=== PATIENT | female | born 1945 | race Caucasian/White ===

== ENCOUNTER → 2017-02-25 | Outpatient (CLI) | payer BC ==
[~2017-02-25] MED LIST: LPTUNK; LRT5 PO; TIOTCAP INH
[2017-02-25 10:49] LABS: BASO % 0.9 %; BASO ABS # 0.06 K/uL (0-0.2); COMPLETE YES; HEMATOCRIT 43.4 % (37-47); IG% 0.1 %; LYMPH % 38.9 %; LYMPH ABS # 2.66 K/uL (1.2-3.4); MEAN CELL VOLUME 89.3 fL (80-100); MEAN CORPUSCULAR HEMOGLOBIN 29.8 pg (25-34); MEAN CORPUSCULAR HGB CONC 33.4 g/dl (32-36); MEAN PLATELET VOLUME 10.5 fL (7.4-10.4); MONO % 9.5 %; NEUT % 48.6 %; PLATELET COUNT 260 K/uL (130-400); RED BLOOD COUNT 4.86 M/uL (4.2-5.4); WHITE BLOOD COUNT 6.83 K/uL (4.8-10.8)
[2017-02-25 11:21] LABS: ALT/SGPT 23 U/L (12-78); AST/SGOT 14 U/L (15-37); BLOOD UREA NITROGEN 15 mg/dl (7-18); BUN/CREATININE RATIO 17.8 (10-20); CALCIUM 8.9 mg/dl (8.5-10.1); CARBON DIOXIDE 30 mmol/L (21-32); CHLORIDE 110 mmol/L (98-107); CREATININE 0.83 mg/dl (0.60-1.20); GLUCOSE 99 mg/dl (70-99); POTASSIUM 4.7 mmol/L (3.5-5.1); SODIUM 144 mmol/L (136-145)
[2017-02-25 11:33] LABS: ALKALINE PHOSPHATASE 66 U/L (45-117); CHOLESTEROL 264 mg/dl (0-200); CHOLESTEROL/HDL RATIO 5.2; HDL CHOLESTEROL 51 mg/dl; LDL CHOLESTEROL CALCULATED 172 mg/dl; TRIGLYCERIDES 204 mg/dl (0-150); VERY LOW DENSITY LIPOPROT CALC 41 mg/dl
== END | disposition home or self-care (01) ==
LOC: C.LABBC 08:41
PROVIDERS: ATTEND Internal Medicine Pulmonary Disease
DX: J44.9 Chronic obstructive pulmonary disease, unspecified (principal); M81.0 Age-related osteoporosis without current pathological fracture; E78.5 Hyperlipidemia, unspecified

== ENCOUNTER → 2017-05-08 | Outpatient (CLI) | payer BC ==
--- NOTE | 2017-05-09 07:41 | MAMMOGRAPHY REPORT ---
BILATERAL DIGITAL SCREENING MAMMOGRAM WITH CAD: 05/08/2017 CLINICAL HISTORY: Routine screening. Patient has no complaints. TECHNIQUE: Bilateral CC and MLO views were obtained. Current study was also evaluated with a Compute r Aided Detection (CAD) system. COMPARISON: Comparison is made to exams dated: 05/05/2016 mammogram, 11/09/2015 mammogram, 05/20/2015 m ammogram, 05/11/2015 mammogram, 05/04/2015 mammogram, and 05/02/2014 mammogram - [facility] enter. BREAST COMPOSITION: There are scattered areas of fibroglandular density in both breasts. FINDINGS: There are diffuse bilateral benign rim calcifications. 2 stable metallic biopsy marker cli ps in the right breast. No new suspicious mass, architectural distortion or cluster of microcalcific ations is seen. IMPRESSION: ACR BI-RADS CATEGORY 1: NEGATIVE There is no mammographic evidence of malignancy. A 1 year screening mammogram is recommended. The pa tient will receive written notification of the results. Approximately 10% of breast cancers are not detected with mammography. A negative mammographic report should not delay biopsy if a clinically suggestive mass is present. Aleta Galarza M.D. ay/:05/08/2017 16:03:36 Finance Broker: Lana DURAN(R)(Renetta)(BD), [facility] letter sent: Normal 1/2 BI-RADS Code: ACR BI-RADS Category 1: Negative
== END | disposition home or self-care (01) ==
LOC: C.MAMM 09:29
PROVIDERS: ATTEND Obstetrics & Gynecology
DX: Z12.31 Encounter for screening mammogram for malignant neoplasm of breast (principal)

== ENCOUNTER → 2018-03-01 | Outpatient (CLI) | payer BC ==
[2018-03-01 13:05] LABS: BASO % 0.8 %; BASO ABS # 0.05 K/uL (0-0.2); EOS % 2.1 %; EOS ABS # 0.14 K/uL (0-0.5); HEMATOCRIT 40.5 % (37-47); HEMOGLOBIN 14.1 g/dL (12.0-16.0); IG# 0.02 K/uL (0.00-0.02); LYMPH % 38.6 %; LYMPH ABS # 2.55 K/uL (1.2-3.4); MEAN CELL VOLUME 86.4 fL (80-100); MEAN CORPUSCULAR HEMOGLOBIN 30.1 pg (25-34); MEAN CORPUSCULAR HGB CONC 34.8 g/dl (32-36); MEAN PLATELET VOLUME 9.7 fL (7.4-10.4); MONO ABS # 0.46 K/uL (0.11-0.59); NEUT % 51.2 %; NEUT ABS # 3.39 K/uL (1.4-6.5); PLATELET COUNT 246 K/uL (130-400); RED CELL DISTRIBUTION WIDTH CV 13.6 % (11.5-14.5); WHITE BLOOD COUNT 6.61 K/uL (4.8-10.8)
[2018-03-01 13:46] LABS: ALBUMIN 3.5 gm/dl (3.4-5.0); ALT/SGPT 39 U/L (12-78); AST/SGOT 26 U/L (15-37); BLOOD UREA NITROGEN 9 mg/dl (7-18); CALCIUM 8.6 mg/dl (8.5-10.1); CARBON DIOXIDE 26 mmol/L (21-32); CHOLESTEROL 146 mg/dl (0-200); CREATININE 0.85 mg/dl (0.60-1.20); GLUCOSE 93 mg/dl (70-99); SODIUM 142 mmol/L (136-145)
[2018-03-01 13:57] LABS: ALKALINE PHOSPHATASE 73 U/L (45-117); LDL CHOLESTEROL CALCULATED 62 mg/dl; TOTAL PROTEIN 7.1 gm/dl (6.4-8.2)
== END | disposition home or self-care (01) ==
LOC: C.LABBC 08:55
PROVIDERS: ATTEND Internal Medicine Pulmonary Disease
DX: Z00.00 Encounter for general adult medical examination without abnormal findings (principal); J44.9 Chronic obstructive pulmonary disease, unspecified; E78.5 Hyperlipidemia, unspecified; F41.9 Anxiety disorder, unspecified

== ENCOUNTER → 2018-05-09 | Outpatient (CLI) | payer BC ==
--- NOTE | 2018-05-10 08:11 | MAMMOGRAPHY REPORT ---
BILATERAL DIGITAL SCREENING MAMMOGRAM TOMOSYNTHESIS WITH CAD: 05/09/2018 CLINICAL HISTORY: Routine screening. Patient has no complaints. TECHNIQUE: The study was acquired using full field digital technology and interpreted from soft copy. Breast tomosynthesis in addition to standard 2D mammography was performed. Current study was also ev aluated with a Computer Aided Detection (CAD) system. COMPARISON: Comparison is made to exams dated: 05/08/2017 mammogram, 05/05/2016 mammogram, 11/09/2015 m ammogram, 05/20/2015 mammogram, 05/11/2015 mammogram, and 05/04/2015 mammogram - [facility] enter. BREAST COMPOSITION: There are scattered areas of fibroglandular density in both breasts. FINDINGS: No suspicious masses, calcifications, or areas of architectural distortion are noted in either breast . There has been no significant interval change compared to prior exams. Scattered bilateral benign-a ppearing calcifications are not significantly changed. A biopsy clip is again noted within the right medial breast. Bilateral nodularity appears stable compared to prior exams. IMPRESSION: There is no mammographic evidence of malignancy. A 1 year screening mammogram is recommended.( 019) The patient will receive written notification of the results. Approximately 10% of breast cancers are not detected with mammography. A negative mammographic report should not delay biopsy if a clinically suggestive mass is present. Haritha Mars M.D. /:05/09/2018 14:59:55 Fixing Machine Operator: Juliana Lindquist, [facility] letter sent: Normal 1/2 BI-RADS Code: ACR BI-RADS Category 2: Benign
== END | disposition home or self-care (01) ==
LOC: C.MAMM 09:17
PROVIDERS: ATTEND Internal Medicine Pulmonary Disease
DX: Z12.31 Encounter for screening mammogram for malignant neoplasm of breast (principal)

== ENCOUNTER → 2018-06-08 | Outpatient (CLI) | payer BC ==
--- NOTE | 2018-06-08 10:26 | DIAGNOSTIC IMAGING REPORT ---
R FOOT MIN 3 VIEWS ROUTINE CLINICAL HISTORY: M79.671 Foot pain, rightright COMPARISON: None. DISCUSSION: The bones and joint spaces appear intact. There is no evidence of fracture, dislocation or bony disease. There is no evidence for soft tissue swelling. IMPRESSION: Negative study. Small heel spur. The above report was generated using voice recognition software. It may contain grammatical, syntax or spelling errors. Electronically signed by: Luis Carlos Buck M.D. 06/08/2018 10:24 AM Dictated Date/Time: 06/08/2018 10:23 AM
== END | disposition home or self-care (01) ==
LOC: C.RAD1850 10:11
PROVIDERS: ATTEND Nurse Practitioner
DX: M79.671 Pain in right foot (principal); M77.31 Calcaneal spur, right foot

== ENCOUNTER 2024-01-15 06:08 | Inpatient (IN) ==
--- OUTSIDE RECORDS SUMMARY | 2024-01-15 06:12 | External Medical Summary | Continuity of Care Document ---
Author Name Unknown Organization [address] Address [address] [place], [place] [id number] Care Team Providers Care Electrical Tests Supervisor Name Role Phone Marva Liu Primary [facility] [place] [phone] Encounter [facility] [id number] Date(s): 01/12/24 - 01/12/[address] [facility] [address], [address] [place] [address] [phone] Encounter Diagnosis Left sided sciatica(Discharge Diagnosis) - 01/12/24 Discharge Disposition: Home or Self Care Attending Physician: Nik Sow DO, Mariana Annette Referring Physician: Nik Sow DO, Mariana Annette Allergies, Adverse Reactions, Alerts Substance Reaction Severity Status sulfa drugs unsure Active Assessment and Plan Extracted from: Title:Office Visit Note Author:Nik Sow DO, Mariana Annette Date:01/12/24 1.Left sided sciatica Acute discussed supportive care, heat/ice, tylenol and ibuprofen up to 4x daily. Patient given stretching and strengthening exercises. if not improving in 2-3 weeks, could consider formal PT, patient will reach out if not improving or if worsening Medications atorvastatin 40 mg oral tablet Start: 12/15/23 10:19:00 EST, 1 tab, PO, Daily, Disp# 90 tab, Refills: 3, Pharmacy: [id number] Start Date: 12/15/23 Status: Ordered LORazepam 0.5 mg oral tablet Start: 12/15/23 10:19:00 EST, 1 tab, PO, Daily, Disp# 15 tab, Refills: 0, PRN: as needed for anxiety, Pharmacy: [id number] Start Date: 12/15/23 Status: Ordered Spiriva 18 mcg inhalation capsule Start: 12/15/23 10:18:00 EST, 1 each, inhaled, Daily, Disp# 90 cap, Refills: 3, Pharmacy: [facility] Start Date: 12/15/23 Status: Ordered Mental Status 01/12/24 Barriers to Learning one year None evide nt Mandatory Health Literacy Documentation Yes Health Literacy Communication Barriers N ever Primary Language Estonian Problem List Condition Confirmation Course Effective Dates Status H ealth Status Informant Anxiety Confirmed Active COPD Confirmed Active Hyperlipidemia Confirmed Active Non-melanoma skin cancer Confirmed Active Osteoporosis Confirmed Active Weight disorder Confirmed Active Diagnosis Diagnosis Type Effective Dates Health Status Cl inical Service Informant Left sided sciatica Discharge Diagnosis 01/12/24 Procedures Procedure Date Related Diagnosis Body Site Status Colonoscopy 2015 Completed Shave biopsy of skin Comp leted surgery on hand Completed Vital Signs Most recent to oldest [Reference Range]: 1 Patient Weight 81.2 kg (01/12/24 10:26 AM) Heart Rate 64 bpm (01/12/24 10:26 AM) Blood Pressure 128/74mmHg (01/12/24 10:26 AM) Cuff Pulse Pressure 54 mmHg (01/12/24 10:26 AM) Social History Social History Type Response Tobacco Former smoker, Cigar ettes, 1 per day. 30 year(s). Smoking Status Former Smoker, quit > 1 yr Sex Female [facility] Outpt Note * Nik Sow DO, Mariana Annette: PERFORM Event Display: [facility] Outpt Note Authored Date: Chief Complaint c/o of left sided leg pain. States she is starting to have pain on her right side today Some times its a "really strong pain" some times it is an ache. History of Present Illness Endorses left leg pain started in left buttock radiates down her leg andstops atankle pain is achy, sometimes worsens, sharp pain in her buttock with pressure no rashes started Monday, came on gradually no injury or changes in routine taking ibuprofen twice per day which helps, also took tylenol arthritis but that did not help walking worsens the pain this morning noted that her right leg/knee were achy as well Physical Exam Vitals & Measurements HR:64(Monitored) BP:128/74 SpO2:95% WT:81.2kg WT:81.200kg(Dosing) General: Well-developed, well-nourished and in no acute distress. Skin: No lesions or rash noted throughout the spine or legs Back: On palpation of the thoracic and lumbar spinous processes, there is no tenderness. There is no tenderness on palpation of the paraspinous muscles bilaterally. There is no limitation to flexion or extension of the spinal column, no limitation to rotation, no limitation to lateral bending. Straight leg raise is negative bilaterally Negative Hip scour, LOIDA test, log roll. No TTP over knee joint, no edema or erythema, no ligamentous laxity No TTP over ankle joint, no edema Neurologic: Patellar tendon reflexes are 2+ bilaterally. Achilles tendon reflexes are 2+ bilaterally. Strength is 5/5 with flexion at the hip, flexion at the knee, extension at the knee, dorsiflexion at the ankle and plantarflexion at the ankle. Assessment/Plan 1.Left sided sciatica Acute discussed supportive care, heat/ice, tylenol and ibuprofen up to 4x daily. Patient given stretching and strengthening exercises. if not improving in 2-3 weeks, could consider formal PT, patient will reach out if not improving orif worsening Attestation Time spent: Pre-visit planning: _ [id number] visit: _20 Post-visit (orders/documentation/coordination of care):5 Total visit time: _25 Problem List/Past Medical History Ongoing Anxiety COPD Hyperlipidemia Non-melanoma skin cancer Osteoporosis Weight disorder Historical Skin cancer Procedure/Surgical History Colonoscopy| Service Date: biopsy of skinsurgery on hand Medications atorvastatin(atorvastatin 40 mg oral tablet), 40 mg= 1 tab, PO, Daily, 3 refills LORazepam(LORazepam 0.5 mg oral tablet), 0.5 mg= 1 tab, PO, Daily, PRN tiotropium(Spiriva 18 mcg inhalation capsule), 18 mcg= 1 each, inhaled, Daily, 3 refills Allergies sulfa drugsunsure Social History Smoking Status Former Smoker, quit > 1 yr Alcohol - Denies Alcohol Use Employment/School Status:Retired Exercise - Comments: walks outside when weather is nice, walks in grocery store Home/Environment Lives with:Children, Spouse Living situation:Home/Independent Substance Abuse - Denies Substance Abuse Tobacco Use:Former smoker Type:Cigarettes Tobacco use per day:1 Number of years:30 Family History Heart attack: Father.Negative: Mother. Malignant tumor of lung: Brother. Skin cancer: Sister. Stroke: Sister. Health Status Family Member(s) Recommendations Health Maintenance Pending(in the next year) OverDue Adult Influenza Vaccine due04/21/23and every 1year Due Adult COVID-19 Vaccination due01/12/24Unknown Frequency Adult Social Determinants of Health Screening due01/12/24Unknown Frequency Adult Tdap/Td Vaccine due01/12/24Unknown Frequency Body Mass Index due01/12/24Unknown Frequency Medicare Annual Wellness Visit due01/12/24and every 1year Pneumococcal Vaccine Older Adults due01/12/24One-time only Shingles Vaccine due01/12/24One-time only Satisfied(in the past 1 year) Satisfied Breast Cancer Screening on05/25/23.Satisfied by SARAH Suazo Gillian Hepatitis C Screening on12/26/23.Satisfied by Contributor_system, [id number] Lipid Screening on12/26/23.Satisfied by Contributor_system, [id number] Osteoporosis Screening on04/28/23.Satisfied by SARAH Suazo Gillian Electronic Signature on File Electronically Reviewed/Signed by: Marva Sow DO Author Signature Dt/Tm:01/12/2024 11:01 AM Department of Family Medicine [facility] Patient Care team information Care Team Personnel Name: Nik Sow DO, Mariana Annette Position: Physician - Family Med Member Role: Primary Care Provider Address: Address: [address] [place] [address], [place] [address] [place] Care Team Related Persons Name: MANOLO CABALLERO Address: home [address] [place] [address] SHANNAN DAVE [phone]
--- NOTE | 2024-01-15 06:45 | XRay Report ---
XR hip LT 2V w pelvis CLINICAL HISTORY: Left hip pain. COMPARISON: CT of the abdomen and pelvis March 23, 2022. FINDINGS: Sacroiliac joints and symphysis pubis are intact. There is no fracture or osseous lesion w ithin the pelvis or hips. There is mild joint space narrowing and osteophytosis of the hips. No evide nce for avascular necrosis of the femoral heads. IMPRESSION: 1. No fractures within the pelvis or hips. 2. Mild bilateral hip osteoarthritis. ACT 112: Negative or not required by law. Electronically signed by: Nils Dominique M.D. 01/15/2024 6:44 AM
[2024-01-15] MEDS: HYDROmorphone INJ 0.5 MG/0.5 ML SYR IV STA ×2 (07:11→08:15)
--- NOTE | 2024-01-15 07:23 | Emergency Department Note ---
Impression & Plan Sciatica ED Provider Note NAME: OLLIE CABALLERO AGE: 78 SEX: F : 1945 ARRIVES VIA: Walk-In INFORMANT: Patient, ED PROVIDER(S): Rose Mohr MD CHIEF COMPLAINT: Continued back pain HPI: This is an 78-year-old female history of COPD, GERD presenting for back pain. Patient states that she seen here about 2 days ago and diagnosed with sciatica. She states that the pain goes from her lower back into her left butt cheek and radiates into the anterior/lateral aspect of her left lower extremity. She does feel somewhat numb at times. She does feels mildly swollen compared to the right. She does pain is still excruciating in her back and not improved with the steroid pack she was given. She does she has been having difficulty walking around due to this pain. No saddle anesthesia, urinary or bowel incontinence. No nausea vomiting or fevers. No chest pain. ROS: See above HPI for pertinent positives & negatives. A total of 10 systems reviewed and were otherwise negative. PAST MEDICAL HISTORY: See Below PAST SURGICAL HISTORY: See Below FAMILY HISTORY: See Below SOCIAL HISTORY: See Below HOME MEDICATIONS: See Below ALLERGIES: See Below VITALS: See Below PHYSICAL EXAMINATION: General: resting comfortably in no acute distress Head: Normocephalic and atraumatic Eyes: Normal inspection, extraocular muscles intact Ear, nose, throat: Normal external exam Neck: Normal range of motion Respiratory: lungs clear to auscultation bilaterally Cardiovascular: Regular rate/rhythm, no murmur GI: soft, nontender, no guarding or rebound Extremities: nontender, moves all extremities Neuro: The patient awake and alert, appropriately conversive, no focal deficits, symmetric faces Skin: Warm, dry, and intact MEDICAL DECISION MAKING: This is an 78-year-old female presenting for back pain. Patient symptoms appear consistent with sciatica at this time clinically she has 2+ pulses making arterial occlusion unlikely. Otherwise patient notes reported history of swelling, difficulty appreciate but with her description of this, will do DVT study. Will do pain control here with Toradol and Dilaudid. Clinically with patient's symptoms, consider sciatica however low concern for dissection or arterial occlusion. -DVT study is negative for acute blood clot -Patient notes somewhat improvement after Dilaudid. Due to inability to control patient's pain, will admit for further management of pain. Differential diagnosis: See above ER treatment provided: See below Diagnostics interpreted by me: ECG: None Cardiac Monitoring: An order was placed for continuous cardiac monitoring. The monitor shows a rate of 60 with sinus rhythm. Laboratory studies: As stated above and show below. Imaging studies: See below. Past Med/Surg History Medical History Uterine fibroid Osteoporosis Anxiety Dyslipidemia History of abnormal mammogram Hx of acute dermatitis Hx of basal cell carcinoma Disc degeneration, lumbosacral Surgical History H/O breast biopsy Status post Mohs micrographic surgery for basal cell carcinoma (BCC) S/P dilatation and curettage S/P colonoscopy (~2007) History of cryosurgery S/P breast biopsy Hx of bilateral cataract extraction (~2017) Family History Aunt Breast cancer Father Coronary heart disease Pulmonary embolism Mother Diabetes Sister Dementia Mini stroke History of blood clots Sister History of blood clots Mini stroke Daughter Deep vein thrombosis Brother History of blood clots Other No pertinent family history Denies family history of Ovarian cancer Prostate cancer Myocardial infarction Colorectal cancer Social History Smoking Status: Former smoker Tobacco Type: Cigarettes Age Started Using Tobacco: 17; Age Quit Using Tobacco: 58; packs per day: 0.75; Second Hand Exposure: No; Do You Dip or Chew Tobacco: No; Hx Alcohol Use: No Hx Substance Use: No Preferred Language: Dominican Communication Ability: Effective Visual Impairment: No Limitations Hearing Ability: Normal Plate Filler Required: No Beliefs That Will Affect Care: None marital status: Current Living Situation: Spouse current occupational status: retired 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 Other Information That Helps Us Care for You: No Feels Safe at Home: Yes Safety Concerns: Feels Safe At This Time Childhood Exposure to Second-Hand Smoke: Yes Diet: regular Dental Care, Regularly: No Physical Activity Frequency: Does not Exercise Seatbelt Use: always Sunscreen Use: Yes (sometimes ) Assistive Devices: Glasses Allergies Allergies Allergy/AdvReac Type Severity Reaction Status Date / Time Sulfa (Sulfonamide Allergy Verified 11/06/23 14:47 Antibiotics) Home Meds Home Medications Medication Instructions Recorded Confirmed denosumab 60 mg/mL subcutaneous 0 mg subcut ONCE 01/15/24 01/15/24 syringe (Prolia) lorazepam 0.5 mg tablet 0.5 mg PO DAILY PRN anxiety 01/15/24 01/15/24 Previous Rx's Medication Instructions Recorded albuterol sulfate 90 mcg/actuation 2 puff inhalation Q4H PRN 10/05/22 aerosol inhaler (Ventolin HFA) Shortness Of Breath #1 inhaler tiotropium bromide 18 mcg capsule 1 cap inhalation DAILY #90 12/05/22 with inhalation device inhalations atorvastatin 40 mg tablet 40 mg PO DAILY #90 tabs 10/05/23 methylprednisolone 4 mg tablets in 4 mg PO DIRECTED #21 ea 01/13/24 a dose pack (Medrol (Praful)) Results & Data (ED) Vital Signs Vital Signs - 24 hr 01/15/24 06:11 01/15/24 07:13 01/15/24 07:30 Temperature 36.7 C Temperature Source Temporal Artery Scan Pulse Rate 73 61 60 Pulse Rhythm Regular Pulse Strength Normal Respiratory Rate 18 14 13 Respiratory Effort / Characteristics Non-Labored Respiratory Depth Normal Respiratory Pattern Regular Blood Pressure 127/71 165/73 H 146/74 H Blood Pressure Mean 89 103 101 Pulse Oximetry 95 96 95 Oxygen Delivery Method Room Air Room Air Room Air Sepsis Recent Fever Within 48 Hours No Sepsis New/Unexplained Change in Mental Status No Sepsis Action Taken by Nursing No Action Required 01/15/24 08:23 01/15/24 08:30 01/15/24 09:00 Temperature Temperature Source Pulse Rate 63 63 60 Pulse Rhythm Pulse Strength Respiratory Rate 17 17 Respiratory Effort / Characteristics Respiratory Depth Respiratory Pattern Blood Pressure 156/85 H 141/72 H Blood Pressure Mean 108 95 Pulse Oximetry 94 93 Oxygen Delivery Method Room Air Room Air Sepsis Recent Fever Within 48 Hours Sepsis New/Unexplained Change in Mental Status Sepsis Action Taken by Nursing 01/15/24 09:30 Temperature Temperature Source Pulse Rate 60 Pulse Rhythm Pulse Strength Respiratory Rate 18 Respiratory Effort / Characteristics Respiratory Depth Respiratory Pattern Blood Pressure 147/74 H Blood Pressure Mean 98 Pulse Oximetry 94 Oxygen Delivery Method Room Air Sepsis Recent Fever Within 48 Hours Sepsis New/Unexplained Change in Mental Status Sepsis Action Taken by Nursing Laboratory Data 01/15/24 10:24 01/15/24 10:24 Administered Medications Acetaminophen (Acetaminophen 325 Mg Tab) 650 mg PO Q4H ALFRED Stop: 02/14/24 09:44 Last Admin: 01/15/24 13:27 Dose: 650 mg Documented By: Admin: 01/15/24 10:36 Dose: 650 mg Documented By: ARLEY Atorvastatin Calcium (Atorvastatin 40 Mg Tab) 40 mg PO DAILY ALFRED Stop: 02/14/24 10:39 Last Admin: 01/15/24 12:07 Dose: 40 mg Documented By: THIEN Umeclidinium [place] (Umeclidinium [place] 62.5mcg/Blister 7 Puffs/Inhaler) 1 puffs INH DAILY ALFRED Stop: 02/14/24 10:59 Last Admin: 01/15/24 12:07 Dose: 1 puffs Documented By: THIEN Discontinued Medications Enoxaparin Sodium (Enoxaparin Inj 40 Mg/0.4 Ml Syr) 40 mg SQ Q24H ALFRED Stop: 01/15/24 10:01 Last Admin: 01/15/24 10:36 Dose: 40 mg Documented By: ARLEY Hydromorphone HCl (Hydromorphone Inj 0.5 Mg/0.5 Ml Syr) 0.5 mg IV NOW STA Stop: 01/15/24 06:47 Last Admin: 01/15/24 07:11 Dose: 0.5 mg Documented By: ARLEY Hydromorphone HCl (Hydromorphone Inj 0.5 Mg/0.5 Ml Syr) 0.5 mg IV NOW STA Stop: 01/15/24 08:12 Last Admin: 01/15/24 08:15 Dose: 0.5 mg Documented By: ARLEY Prednisone (Prednisone 20 Mg Tab) 40 mg PO DAILY ALFRED Stop: 01/15/24 10:01 Last Admin: 01/15/24 10:37 Dose: 40 mg Documented By: ARLEY Imaging Data Radiologist's Impression: Hip/Pelvis X-Ray 01/15/24 06:21 XR hip LT 2V w pelvis CLINICAL HISTORY: Left hip pain. COMPARISON: CT of the abdomen and pelvis March 23, 2022. FINDINGS: Sacroiliac joints and symphysis pubis are intact. There is no fracture or osseous lesion within the pelvis or hips. There is mild joint space narrowing and osteophytosis of the hips. No evidence for avascular necrosis of the femoral heads. IMPRESSION: 1. No fractures within the pelvis or hips. 2. Mild bilateral hip osteoarthritis. ACT 112: Negative or not required by law. Electronically signed by: Nils Dominique M.D. 01/15/2024 6:44 AM Venous Doppler Study 01/15/24 06:45 LEFT LOWER EXTREMITY VENOUS DOPPLER CLINICAL HISTORY: Left lower extremity pain. COMPARISON STUDY: No previous studies for comparison. TECHNIQUE: Sonography of the deep venous system of the left lower extremity was performed. Compression and augmentation were evaluated. FINDINGS: The left common femoral, superficial femoral and popliteal veins were compressible. Augmentation was normal. Flow was shown within the deep calf vessels. IMPRESSION: No evidence of deep venous thrombus within the left lower extremity. ACT 112: Negative or not required by law. Electronically signed by: Nils Dominique M.D. 01/15/2024 8:23 AM Discharge Plan Visit Data Chief Complaint: Hip Pain Stated Complaint: LEFT SCIATIC PAIN ED Provider: Rose Mohr Discharge Problem: Sciatica Patient Disposition: Admitted As Inpatient Discharge Instructions Interventions: ED Discharge Assessment Last Done: 01/15/24 13:25
--- NOTE | 2024-01-15 08:24 | Ultrasound Report ---
LEFT LOWER EXTREMITY VENOUS DOPPLER CLINICAL HISTORY: Left lower extremity pain. COMPARISON STUDY: No previous studies for comparison. TECHNIQUE: Sonography of the deep venous system of the left lower extremity was performed. Compressi on and augmentation were evaluated. FINDINGS: The left common femoral, superficial femoral and popliteal veins were compressible. Augmen tation was normal. Flow was shown within the deep calf vessels. IMPRESSION: No evidence of deep venous thrombus within the left lower extremity. ACT 112: Negative or not required by law. Electronically signed by: Nils Dominique M.D. 01/15/2024 8:23 AM
[2024-01-15] MEDS ORDERED: ALUMINUM/MAGNESIUM SUSP 30 ML UDC PO PRN (09:41)
[2024-01-15] MEDS ORDERED: POLYETHYLENE (MIRALAX) 17 GM PACK PO PRN (09:41)
[2024-01-15] MEDS ORDERED: MELATONIN 3 MG TAB PO PRN (09:41)
[2024-01-15] MEDS ORDERED: ONDANSETRON INJ 2 MG/ML 2 ML VIAL IV PRN (09:41)
[2024-01-15] MEDS ORDERED: HYDROmorphone INJ 0.5 MG/0.5 ML SYR IV PRN (09:46)
[2024-01-15] MEDS: ENOXAPARIN INJ 40 MG/0.4 ML SYR SQ SCH (10:36)
[2024-01-15] MEDS: ACETAMINOPHEN 325 MG TAB PO SCH (10:36)
[2024-01-15] MEDS: predniSONE 20 MG TAB PO SCH (10:37)
[2024-01-15] MEDS ORDERED: ALBUTEROL HFA 8 GM INHALER INH PRN (10:39)
[2024-01-15] MEDS ORDERED: LORazepam 0.5 MG TAB PO PRN (10:39)
[2024-01-15 10:40] LABS: Hematocrit (blood only) 40.4 % (37.0-47.0); Hemoglobin 13.7 g/dl (12.0-16.0); Mean Corpuscular Hgb Conc 33.9 g/dL (32.0-36.0); Mean Corpuscular Volume 85.4 fL (80.0-100.0); Mean Platelet Volume 10.2 fL (9.4-12.4); Platelet Count 244 K/uL (130-400); RDW Coefficient of Variation 14.2 % (11.5-14.5); RDW Standard Deviation 44.3 fL (36.4-46.3); Red Blood Count 4.73 M/uL (4.20-5.40); White Blood Count 11.93 K/ul (4.8-10.8)
[2024-01-15] MEDS ORDERED: CYCLOBENZAPRINE HCL 5 MG TAB PO PRN (10:40)
--- NOTE | 2024-01-15 10:43 | History & Physical Report ---
Date of Service January 15, 2024 Assessment & Plan (1) Acute sciatica: Plan: 78 y/o with one week of L buttock pain radiating down left leg. Started outpatient treatment with APAP/ibuprofen and stretching exercises, which she was unable to do, seen in ED 01/12 and started on medrol dose pack but had severe pain last night, unable to ambulate and required IV hydromorphone for pain control in ED Does not have low back pain or tenderness so origin may be where sciatic nerve passes through buttock/sciatic notch rather than lumbar radicular pain. No weakness, no "red flags" other than age, no hx falls/trauma. Sounds like may have started to improve on medrol then aggravated by sitting in kitchen chair yesterday -admit to observation for pain/symptom control -prednisone 40 mg x 5 days ordered -scheduled acetaminophen, PRN low dose IV hydromorphone for severe pain, PRN oxycodone for moderate pain, PRN toradol - caution with renal function, low dose ordered for 3 more doses, got dose in ED. PRN cyclobenzaprine -PT and OT -consider lumbar imaging if not improving Ordered CBC, BMP to check renal function and history of anemia per chart - reviewed, unremarkable Mild leukocytosis from steroid effect (2) Chronic obstructive pulmonary disease: Plan: Not in exacerbation Continue tiotropium, PRN albuterol Plan Chronic conditions: osteoporosis - on Prolia, followed by Dr. Jean History of Present Illness Chief Complaint: Acute sciatica Primary Care Provider: Marva Sow, DO 78 y/o with COPD and osteoporosis who developed left buttock pain radiating down leg starting a week ago. Seen by primary care last week, was taking acetaminophen and ibuprofen and PCP gave her some exercises for sciatica. Pain continued to worsen and was seen in ED over the weekend, prescribed medrol dosepack (took 2 days of this so far). Yesterday day did fairly well. Did sit on non-cushioned kitchen chair from about 10 am to 2 pm. Had severe pain overnight could not sleep, could not ambulate or go down stairs so called medics and was brought in to ED. reports she has had more back pain this year, but typically takes only tylenol. No similar episodes to this. Pain is aggravated by lying flat and improved with walking stooped over. Pain starts in L buttock and radiates down posterior left thigh then around lateral leg to ankle. Has some numbness/dysesthesia dorsum L foot. No leg weakness. No bowel or bladder symptoms such as incontinence or retention. No fevers. No history of cancer. No history of falls or trauma. Does have osteoporosis and started Prolia for this in 2022. Feels like L leg is swollen but this was not appreciated by her or ED MD. Allergies Allergy/AdvReac Type Severity Reaction Status Date / Time Sulfa (Sulfonamide Allergy Verified 11/06/23 14:47 Antibiotics) Home Medications Medication Instructions Recorded Confirmed Type albuterol sulfate 90 mcg/actuation 2 puff inhalation Q4H PRN 10/05/22 01/15/24 Rx aerosol inhaler (Ventolin HFA) Shortness Of Breath #1 inhaler tiotropium bromide 18 mcg capsule 1 cap inhalation DAILY #90 12/05/22 01/15/24 Rx with inhalation device inhalations atorvastatin 40 mg tablet 40 mg PO DAILY #90 tabs 10/05/23 01/15/24 Rx methylprednisolone 4 mg tablets in 4 mg PO DIRECTED #21 ea 01/13/24 01/15/24 Rx a dose pack (Medrol (Praful)) denosumab 60 mg/mL subcutaneous 0 mg subcut ONCE 01/15/24 01/15/24 History syringe (Prolia) lorazepam 0.5 mg tablet 0.5 mg PO DAILY PRN anxiety 01/15/24 01/15/24 History Past Med/Surg History Medical History Uterine fibroid Osteoporosis Anxiety Dyslipidemia History of abnormal mammogram Hx of acute dermatitis Hx of basal cell carcinoma Disc degeneration, lumbosacral Surgical History H/O breast biopsy Status post Mohs micrographic surgery for basal cell carcinoma (BCC) S/P dilatation and curettage S/P colonoscopy (~2007) History of cryosurgery OF THE CERVIX S/P breast biopsy Hx of bilateral cataract extraction (~2017) Family History Aunt Breast cancer Father Coronary heart disease Pulmonary embolism Mother Diabetes Sister Dementia Mini stroke History of blood clots Sister History of blood clots Mini stroke Daughter Deep vein thrombosis Brother History of blood clots blood clots in abdomen Other No pertinent family history Denies family history of Ovarian cancer Prostate cancer Myocardial infarction Colorectal cancer Social History Smoking Status: Former smoker Tobacco Type: Cigarettes Age Started Using Tobacco: 17; Age Quit Using Tobacco: 58; packs per day: 0.75; Second Hand Exposure: No; Do You Dip or Chew Tobacco: No; Hx Alcohol Use: No Hx Substance Use: No Preferred Language: Sierra Leonean Communication Ability: Effective Visual Impairment: No Limitations Hearing Ability: Normal 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 Boat Required: No Beliefs That Will Affect Care: None marital status: Current Living Situation: Spouse current occupational status: retired 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 [employer] Other Information That Helps Us Care for You: No Feels Safe at Home: Yes Safety Concerns: Feels Safe At This Time Childhood Exposure to Second-Hand Smoke: Yes Diet: regular Dental Care, Regularly: No Physical Activity Frequency: Does not Exercise Seatbelt Use: always Sunscreen Use: Yes (sometimes ) Assistive Devices: Glasses Review of Systems 2 Review of Systems: All systems reviewed & are unremarkable except as noted in HPI & below Physical Exam 2 Physical Exam: PHYSICAL EXAMINATION Last 24h vital signs reviewed, see documentation in flowsheet General: comfortable appearing, no distress HEENT: Normocephalic, atraumatic, pupils round and equal, sclerae anicteric, no conjunctival injection, moist mucus membranes Lungs: Normal respiratory effort. Clear to auscultation bilaterally. No RRW Heart: Regular rate and rhythm, no murmurs. No JVD Abdomen: Soft, nontender, nondistended. Bowel sounds present. Extremities: Warm, dry, well-perfused. No extremity edema. No erythema swelling or tenderness of LLE. Tolerates straight leg raise on L without pain (through recent dose IV hydromorphone) No tenderness to palpation c, t, or L spine, SI joints or paraspinous areas Neuro: Alert and oriented x 4, face symmetric, UE strength 5/5, LE strength distally 5/5, sensation intact to LT bilateral LE Psych: Normal affect and behavior Results & Data Results & Data Vital Signs (Past 12 Hours) Vital Signs Temp Pulse Pulse Resp BP BP Pulse Ox 01/15/24 09:51 62 12 147/74 H 94 01/15/24 09:30 60 18 147/74 H 94 01/15/24 09:00 60 17 141/72 H 93 01/15/24 08:30 63 17 156/85 H 94 01/15/24 08:23 63 01/15/24 07:30 60 13 146/74 H 95 01/15/24 07:13 61 14 165/73 H 96 01/15/24 06:11 36.7 C 73 18 127/71 95 O2 Del Method 01/15/24 09:51 Room Air 01/15/24 09:30 Room Air 01/15/24 09:00 Room Air 01/15/24 08:30 Room Air 01/15/24 08:23 01/15/24 07:30 Room Air 01/15/24 07:13 Room Air 01/15/24 06:11 Room Air Laboratory Results 01/15/24 10:24 01/15/24 10:24 Code Status & VTE Plan VTE Prophylaxis Plan VTE Prophylaxis will be ordered: Yes PG Care Time/CCT Total # of Minutes Spent Total Time Spent with Patient: Total time spent is greater than 50% in coordination of care (as documented) at patient's floor/unit and/or counseling patient: Coding Level of Care Code 64060 INT INP/OBS CARE 2/55MIN Diagnoses Acute sciatica M54.30 Chronic obstructive pulmonary disease J44.9
[2024-01-15 10:55] LABS: BUN Creatinine Ratio 25.7 (10-20); Calcium 8.6 mg/dl (8.6-10.3); Creatinine Clr Calc Pharmacy 57.2 ml/min; Est GFR (African American) 88.7 ml/min; Est GFR (Non-African American) 76.5 ml/min; Potassium 3.9 mmol/L (3.5-5.1)
[2024-01-15] MEDS: ATORVASTATIN 40 MG TAB PO SCH (12:07)
[2024-01-15] MEDS: UMECLIDINIUM BROMIDE 62.5MCG/BLISTER 7 PUFFS/INHALER INH SCH (12:07)
[2024-01-15] MEDS: oxyCODONE HCL IR 5 MG TAB (IMMEDIATE RELEASE) PO PRN (15:34)
[2024-01-15] MEDS: KETOROLAC TROMETHAMINE 15 MG/ML VIAL IV PRN (20:56)
[2024-01-16] MEDS: predniSONE 20 MG TAB PO SCH (08:55)
[2024-01-16] MEDS: ENOXAPARIN INJ 40 MG/0.4 ML SYR SQ SCH (08:56)
--- NOTE | 2024-01-16 13:05 | Magnetic Resonance Report ---
MR lumbar spine wo con CLINICAL HISTORY: sciatic pain, ?stenosis TECHNIQUE: Multiplanar sequences through the lumbar spine were obtained, without intravenous contrast . Comparison: Comparison is made to CT abdomen pelvis 03/23/2022 FINDINGS: Partial lumbarization of the S1 vertebral body is seen. L2-L3: Broad-based posterior disc bulge is seen without significant canal or neuroforaminal stenosis. L3-L4: Broad-based posterior disc bulge is seen with mild bilateral neural foraminal stenosis. L4-L5: Broad-based posterior disc bulge is seen with focal extrusion extending into the left canal. T here is moderate canal stenosis, AP diameter 6 mm, as well as bilateral moderate neuroforaminal steno sis. L5-S1: Broad-based posterior disc bulge is seen. There is severe impingement on the exiting left-side d nerve roots from the superior level disc extrusion as well as disc disease at this level. Moderate right neuroforaminal stenosis is seen. The spinal ligaments are intact, without evidence of disruption or abnormal signal intensity. The spi nal cord is normal in signal intensity and there is no evidence of cord contusion. There is no eviden ce of an extradural, intradural, extramedullary or intramedullary lesion. Visualized soft tissues are normal. IMPRESSION: There is a disc extrusion at L4-L5 with severe impingement on the left-sided L5 nerve roots. There is up to moderate canal stenosis, AP diameter 6 mm, and moderate bilateral foraminal stenosis. ACT 112: Negative or not required by law. Electronically signed by: Lizandro Stacy M.D. 01/16/2024 1:03 PM
--- NOTE | 2024-01-16 14:53 | Hospitalist Progress Note ---
Date of Service January 16, 2024 Assessment & Plan (1) Acute sciatica: Plan: 78 y/o with one week of L buttock pain radiating down left leg. Started outpatient treatment with APAP/ibuprofen and stretching exercises, which she was unable to do, seen in ED 01/12 and started on medrol dose pack but had severe pain last night, unable to ambulate and required IV hydromorphone for pain control in ED -prednisone 40 mg x 5 days ordered -scheduled acetaminophen, PRN low dose IV hydromorphone for severe pain, PRN oxycodone for moderate pain, PRN toradol - caution with renal function, low dose ordered for 3 more doses, got dose in ED. PRN cyclobenzaprine -PT and OT - PT recommend outpatient PT - OT recomends use of walker -MRI lumbar spine with disc extrusion and severe impingement of left sided L5 nerve roots - Discussed case with Dr. Fairchild, will see patient tomorrow. Option for decompression or interventional pain management with injections if not improving -Orthospine consulted. Ordered CBC, BMP to check renal function and history of anemia per chart - reviewed, unremarkable Mild leukocytosis from steroid effect (2) Chronic obstructive pulmonary disease: Plan: Not in exacerbation Continue tiotropium, PRN albuterol Plan Chronic conditions: osteoporosis - on Prolia, followed by Dr. Jean Dispo: continued inpatient stay to see Dr. Fairchild tomorrow DVT proh: Lovenox Admission and Anticipated Discharge Date Admission Date: January 15, 2024 Supervising Physician Co-Signing Physician Notes PA Supervision Note: I did not personally see or examine the patient today, but I verified all thompson points of SHANNAN Escobar's assessment and plan with the following exceptions/additions: None Subjective patient initially seen sitting up in the chair. Reports that her pain has improved now does not go all the way down to her foot like it did in the prior. Does feel like her left leg is weaker than her right. We worked with therapy this morning and they recommended a walker. revisited patient this afternoon after completion of her MRI scan, present at bedside at this time. Informed her of results and overall general options. She would like to wait to discuss these options with Dr. Fairchild Review of Systems Review of Systems: All systems reviewed & are unremarkable except as noted in Subjective Physical Exam Physical Exam: General: NAD, sitting up in the chair, appears well. VS as above Resp: normal respiratory effort, lungs clear to auscultation CV: RRR, no murmur, Abd: non tender, no hepatosplenomegaly Extremities: Moves all extremities, no edema, L Knee flextion 4+/5, L knee extention 5/5. strength 5/5 R knee and b/l feet. No tenderness over spinous process or paraspinous muscles Neuro: A&O x3, Skin: intact, no lesions noted Results & Data Results & Data Vital Signs (Past 12 Hours) Vital Signs Temp Pulse Resp BP Pulse Ox O2 Del Method 01/16/24 07:07 36.9 C 58 L 16 156/78 H 94 Room Air Diagnostic Findings MRI lumbar spine reviewed PG Care Time/CCT Total # of Minutes Spent Total Time Spent with Patient: Total time spent is greater than 50% in coordination of care (as documented) at patient's floor/unit and/or counseling patient: Coding Level of Care Code 79597 SUB INP/OBS CARE 2/35MIN Diagnoses Acute sciatica M54.30 Chronic obstructive pulmonary disease J44.9
--- NOTE | 2024-01-17 10:13 | Orthopedic Consultation ---
Date of Consultation January 17, 2024 Assessment & Plan (1) Lumbar disc herniation with radiculopathy: MRI lumbar spine demonstrates pre-existing lumbar spinal stenosis L4-5 with degenerative disc disease and disc space collapse with a acute disc herniation on the left and caudal migration with marked compression of the traversing L5 nerve root. Plan at this time patient has responded to medications. She is more comfortable this morning. I have discussed treatment plan. Will initiate a course of physical therapy this morning. If she tolerates therapy it be reasonable for her to return home and follow-up with us in the office. If however symptoms return we will possibly need to consider surgical intervention. In her case it would require decompression discectomy L4-L5. She will notify us how she proceeds with therapy. History of Present Illness Reason for Consultation: Back and left leg pain Attending Physician: Tresa Pa MD History of Present Illness This is a very pleasant 78-year-old female who presents with severe left leg pain. MRI demonstrates evidence of spinal stenosis and disc herniation on the left concordant with her pain pattern. This morning she states her symptoms have improved. She was able to get to the bathroom without significant leg pain this morning. The right lower extremity is asymptomatic. She denies any numbness or tingling to the left lower extremity at this time. Allergies Allergy/AdvReac Type Severity Reaction Status Date / Time Sulfa (Sulfonamide Allergy Verified 11/06/23 14:47 Antibiotics) Home Medications Medication Instructions Recorded Confirmed Type albuterol sulfate 90 mcg/actuation 2 puff inhalation Q4H PRN 10/05/22 01/15/24 Rx aerosol inhaler (Ventolin HFA) Shortness Of Breath #1 inhaler tiotropium bromide 18 mcg capsule 1 cap inhalation DAILY #90 12/05/22 01/15/24 Rx with inhalation device inhalations atorvastatin 40 mg tablet 40 mg PO DAILY #90 tabs 10/05/23 01/15/24 Rx methylprednisolone 4 mg tablets in 4 mg PO DIRECTED #21 ea 01/13/24 01/15/24 Rx a dose pack (Medrol (Praful)) denosumab 60 mg/mL subcutaneous 0 mg subcut ONCE 01/15/24 01/15/24 History syringe (Prolia) lorazepam 0.5 mg tablet 0.5 mg PO DAILY PRN anxiety 03/25/24 03/25/24 History Patient History Medical History Uterine fibroid Osteoporosis Anxiety Dyslipidemia History of abnormal mammogram Hx of acute dermatitis Hx of basal cell carcinoma Disc degeneration, lumbosacral Surgical History H/O breast biopsy Status post Mohs micrographic surgery for basal cell carcinoma (BCC) S/P dilatation and curettage S/P colonoscopy (~2007) History of cryosurgery OF THE CERVIX S/P breast biopsy Hx of bilateral cataract extraction (~2017) Family History Aunt Breast cancer Father Coronary heart disease Pulmonary embolism Mother Diabetes Sister Dementia Mini stroke History of blood clots Sister History of blood clots Mini stroke Daughter Deep vein thrombosis Brother History of blood clots blood clots in abdomen Other No pertinent family history Denies family history of Ovarian cancer Prostate cancer Myocardial infarction Colorectal cancer Social History Smoking Status: Former smoker Tobacco Type: Cigarettes Age Started Using Tobacco: 17; Age Quit Using Tobacco: 58; packs per day: 0.75; Second Hand Exposure: No; Do You Dip or Chew Tobacco: No; Hx Alcohol Use: No Hx Substance Use: No Preferred Language: Indonesian Communication Ability: Effective Visual Impairment: No Limitations Hearing Ability: Normal Java Lead Developer Required: No Beliefs That Will Affect Care: None marital status: Current Living Situation: Spouse current occupational status: retired 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 Her is at bedside. She is alert and oriented. She has excellent strength with plantarflexion dorsiflexion quadriceps bilaterally. Sensory appears to be symmetric and intact. She has tension signs with straight leg raising on the left compared to the right with a positive Lasegue's maneuver. Results & Data Vital Signs (Past 12 Hours) Vital Signs Temp Pulse Resp BP Pulse Ox O2 Del Method 01/17/24 07:00 37 C 58 L 16 139/70 95 Room Air 01/16/24 22:40 Room Air
--- NOTE | 2024-01-17 14:12 | Hospitalist Progress Note ---
Date of Service January 17, 2024 Assessment & Plan (1) Acute sciatica: Plan: 78 y/o with one week of L buttock pain radiating down left leg. Started outpatient treatment with APAP/ibuprofen and stretching exercises, which she was unable to do, seen in ED 01/12 and started on medrol dose pack but had severe pain last night, unable to ambulate and required IV hydromorphone for pain control in ED -prednisone 40 mg x 5 days ordered -scheduled acetaminophen, PRN low dose IV hydromorphone for severe pain, PRN oxycodone for moderate pain, PRN toradol - caution with renal function, low dose ordered for 3 more doses, got dose in ED. PRN cyclobenzaprine -PT and OT - PT recommend outpatient PT - OT recomends use of walker -MRI lumbar spine with disc extrusion and severe impingement of left sided L5 nerve roots -Orthospine consulted - Trial PT and decided based on pain level for medical management vs sugrical approach Patient has decided she would like to proceed with surgery - preop EKG ordered - AM CBC, BMP (2) Chronic obstructive pulmonary disease: Plan: Not in exacerbation Continue tiotropium, PRN albuterol Plan Chronic conditions: osteoporosis - on Prolia, followed by Dr. Jean Dispo: continued inpatient stay pending OR DVT proh: chemical dvt proh on hold while awaiting surgery Admission and Anticipated Discharge Date Admission Date: January 15, 2024 Supervising Physician Co-Signing Physician Notes PA Supervision Note: I did not personally see or examine the patient today, but I verified all thompson points of SHANNAN Escobar's assessment and plan with the following exceptions/additions: None Subjective Patient seen this morning after discussion with Dr. Fairchild and was asked to walk with therapy to see how she did. Had minimal pain with this. Asked to come see the patient again this afternoon, pain down to her ankle requiring oxycodone. Has decided she would like to proceed with surgery. Review of Systems Review of Systems: All systems reviewed & are unremarkable except as noted in Subjective Physical Exam Physical Exam: General: NAD, sitting up in bed, family at bedside. VS as above Resp: normal respiratory effort, lungs clear to auscultation CV: RRR, no murmur, Abd: non tender, no hepatosplenomegaly Neuro: A&O x3, Results & Data Results & Data Vital Signs (Past 12 Hours) Vital Signs Temp Pulse Resp BP Pulse Ox O2 Del Method 01/17/24 09:00 Room Air 01/17/24 07:00 37 C 58 L 16 139/70 95 Room Air PG Care Time/CCT Total # of Minutes Spent Total Time Spent with Patient: Total time spent is greater than 50% in coordination of care (as documented) at patient's floor/unit and/or counseling patient: Coding Level of Care Code 09171 SUB INP/OBS CARE 2/35MIN Diagnoses Acute sciatica M54.30 Chronic obstructive pulmonary disease J44.9
[2024-01-18 06:38] LABS: Basophils # (auto) 0.03 K/uL (0.00-0.20); Basophils % (auto) 0.3 %; Eosinophils # (auto) 0.06 K/uL (0.00-0.50); Eosinophils % (auto) 0.5 %; Hematocrit (blood only) 40.4 % (37.0-47.0); Hemoglobin 13.5 g/dl (12.0-16.0); Immature Granulocytes # (auto) 0.07 K/uL (0.01-0.20); Immature Granulocytes % (auto) 0.6 %; Lymphocytes # (auto) 3.81 K/uL (1.20-3.40); Mean Corpuscular Hemoglobin 28.7 pg (25.0-34.0); Mean Corpuscular Hgb Conc 33.4 g/dL (32.0-36.0); Mean Platelet Volume 10.1 fL (9.4-12.4); Monocytes # (auto) 0.84 K/uL (0.11-0.59); Monocytes % (auto) 7.5 %; Neutrophils # (auto) 6.41 K/uL (1.40-6.50); Neutrophils % (auto) 57.1 %; Platelet Count 225 K/uL (130-400); RDW Standard Deviation 43.9 fL (36.4-46.3); White Blood Count 11.22 K/ul (4.8-10.8)
[2024-01-18 06:47] LABS: BUN Creatinine Ratio 27.2 (10-20); Calcium 8.4 mg/dl (8.6-10.3); Creatinine Clr Calc Pharmacy 52.2 ml/min; Est GFR (African American) 79.5 ml/min; Est GFR (Non-African American) 68.6 ml/min; Potassium 4.2 mmol/L (3.5-5.1)
[2024-01-18 06:57] LABS: Partial Thromboplastin Ratio 0.9; Partial Thromboplastin Time 24 Seconds (21-31); Prothrombin Time 10.7 Seconds (9.0-12.0)
--- NOTE | 2024-01-18 12:05 | Orthopedic Progress Note ---
Date of Service January 18, 2024 Assessment & Plan (1) Lumbar disc herniation with radiculopathy: Plan: At this time she is progressing appropriately with therapy and oral medications. Would not recommend any surgical invention at this time. She is cleared to jeremias bacon per orthopedics. Will see her back in our office in a week or so to ensure she is improving appropriately. If there is any change or decline in her status she should notify us sooner. Admission and Anticipated Discharge Date Admission Date: January 17, 2024 Subjective Patient still has some very modest pain to the left lower extremity. She does however feels markedly improved from her status few days ago. She tolerated physical therapy yesterday. She has been up to the bathroom on her own this morning. Physical Exam Physical Exam: On exam she is currently in bed. is at the bedside. She has reasonable strength testing lower extremities. Results & Data Vital Signs (Past 12 Hours) Vital Signs Temp Pulse Resp BP Pulse Ox O2 Del Method 01/18/24 07:52 36.5 C 59 L 16 136/69 94 Room Air
--- NOTE | 2024-01-18 12:19 | Electrocardiogram Report ---
Test Reason : Blood Pressure : / mmHG Vent. Rate : 058 BPM Atrial Rate : 058 BPM P-R Int : 138 ms QRS Dur : 086 ms QT Int : 440 ms P-R-T Axes : 048 037 068 degrees QTc Int : 431 ms Sinus bradycardia Otherwise normal ECG When compared with ECG of 08-AUG-2018 18:19, No significant change was found Confirmed by Sanjiv Nieto ([id number]) on 01/18/2024 12:19:18 PM Referred By: REFERRED SELF Confirmed By:Sanjiv Nieto
--- NOTE | 2024-01-18 13:30 | Discharge Summary ---
Discharge Summary Date of Service January 18, 2024 Notes For Next Care Provider Hospitalized after acute, severe radicular left leg pain. MRI revealed disc herniation with impingment. treated convervatively, seen by ortho spine, ultimately decided not to operate. Discharged home with outpatient PT and steroid taper Medication Changes From Visit oxycodone prn pain prednisone taper Admission HPI Per Admitting Provider 78 y/o with COPD and osteoporosis who developed left buttock pain radiating down leg starting a week ago. Seen by primary care last week, was taking acetaminophen and ibuprofen and PCP gave her some exercises for sciatica. Pain continued to worsen and was seen in ED over the weekend, prescribed medrol dosepack (took 2 days of this so far). Yesterday day did fairly well. Did sit on non-cushioned kitchen chair from about 10 am to 2 pm. Had severe pain overnight could not sleep, could not ambulate or go down stairs so called medics and was brought in to ED. reports she has had more back pain this year, but typically takes only tylenol. No similar episodes to this. Pain is aggravated by lying flat and improved with walking stooped over. Pain starts in L buttock and radiates down posterior left thigh then around lateral leg to ankle. Has some numbness/dysesthesia dorsum L foot. No leg weakness. No bowel or bladder symptoms such as incontinence or retention. No fevers. No history of cancer. No history of falls or trauma. Does have osteoporosis and started Prolia for this in 2022. Feels like L leg is swollen but this was not appreciated by her or ED MD. Principal Dx & Hospital Course #1 = Principal Diagnosis (1) Acute sciatica: 78 y/o with one week of L buttock pain radiating down left leg. Started outpatient treatment with APAP/ibuprofen and stretching exercises, which she was unable to do, seen in ED 01/12 and started on medrol dose pack but had severe pain last night, unable to ambulate and required IV hydromorphone for pain control in ED - received prednisone 40 mg daily, discharged wtith taper - Pain control with scheduled tyenol and prn oxycodone - continued at discharge -PT and OT evaluated patient --> discharged with walker and outpatient PT -MRI lumbar spine with disc extrusion and severe impingement of left sided L5 nerve roots -Orthospine consulted - continue conservative management - outpatient follow up, no surgical intervention at this time Labs that were ordered this morning in anticipation for surgery, without acute findings, no anemia. normal kidney function (2) Chronic obstructive pulmonary disease: Not in exacerbation continue home regimen at discharge Plan Chronic conditions: osteoporosis - on Prolia, followed by Dr. Jean Dispo:discarge to home Discussed case with Dr. Fairchild, ortho-spine Discharge Exam General: NAD, sitting up in bed, appears well. VS as above Resp: normal respiratory effort, lungs clear to auscultation CV: RRR, no murmur, Abd: non tender, no hepatosplenomegaly Neuro: A&O x3, Updated Medication List Medication Instructions Recorded Confirmed Type albuterol sulfate 90 mcg/actuation 2 puff inhalation Q4H PRN 10/05/22 01/15/24 Rx aerosol inhaler (Ventolin HFA) Shortness Of Breath #1 inhaler tiotropium bromide 18 mcg capsule 1 cap inhalation DAILY #90 12/05/22 01/15/24 Rx with inhalation device inhalations atorvastatin 40 mg tablet 40 mg PO DAILY #90 tabs 10/05/23 01/15/24 Rx denosumab 60 mg/mL subcutaneous 0 mg subcut ONCE 01/15/24 01/15/24 History syringe (Prolia) lorazepam 0.5 mg tablet 0.5 mg PO DAILY PRN anxiety 01/15/24 01/15/24 History acetaminophen 325 mg tablet 650 mg (2 x 325 mg) PO Q4H 10 days 01/18/24 Rx #120 tabs oxycodone 5 mg tablet 5 mg PO Q6H PRN pain #10 tabs 01/18/24 Rx prednisone 10 mg tablet See Taper PO DAILY #18 tabs 01/18/24 Rx Hospital Stay Data Consultations 01/15/24 08:26 ED Decision to Admit Stat 01/16/24 14:12 Consult Orthopedic Spine Surgery Routine Diagnostic Imagining Performed Hip/Pelvis X-Ray 01/15/24 06:21 XR hip LT 2V w pelvis CLINICAL HISTORY: Left hip pain. COMPARISON: CT of the abdomen and pelvis March 23, 2022. FINDINGS: Sacroiliac joints and symphysis pubis are intact. There is no fracture or osseous lesion within the pelvis or hips. There is mild joint space narrowing and osteophytosis of the hips. No evidence for avascular necrosis of the femoral heads. IMPRESSION: 1. No fractures within the pelvis or hips. 2. Mild bilateral hip osteoarthritis. ACT 112: Negative or not required by law. Electronically signed by: Nils Dominique M.D. 01/15/2024 6:44 AM Venous Doppler Study 01/15/24 06:45 LEFT LOWER EXTREMITY VENOUS DOPPLER CLINICAL HISTORY: Left lower extremity pain. COMPARISON STUDY: No previous studies for comparison. TECHNIQUE: Sonography of the deep venous system of the left lower extremity was performed. Compression and augmentation were evaluated. FINDINGS: The left common femoral, superficial femoral and popliteal veins were compressible. Augmentation was normal. Flow was shown within the deep calf vessels. IMPRESSION: No evidence of deep venous thrombus within the left lower extremity. ACT 112: Negative or not required by law. Electronically signed by: Nils Dominique M.D. 01/15/2024 8:23 AM Lumbar Spine MRI 01/16/24 10:34 MR lumbar spine wo con CLINICAL HISTORY: sciatic pain, ?stenosis TECHNIQUE: Multiplanar sequences through the lumbar spine were obtained, without intravenous contrast. Comparison: Comparison is made to CT abdomen pelvis 03/23/2022 FINDINGS: Partial lumbarization of the S1 vertebral body is seen. L2-L3: Broad-based posterior disc bulge is seen without significant canal or neuroforaminal stenosis. L3-L4: Broad-based posterior disc bulge is seen with mild bilateral neural foraminal stenosis. L4-L5: Broad-based posterior disc bulge is seen with focal extrusion extending into the left canal. There is moderate canal stenosis, AP diameter 6 mm, as well as bilateral moderate neuroforaminal stenosis. L5-S1: Broad-based posterior disc bulge is seen. There is severe impingement on the exiting left-sided nerve roots from the superior level disc extrusion as wel l as disc disease at this level. Moderate right neuroforaminal stenosis is seen. The spinal ligaments are intact, without evidence of disruption or abnormal signal intensity. The spinal cord is normal in signal intensity and there is no evidence of cord contusion. There is no evidence of an extradural, intradural, extramedullary or intramedullary lesion. Visualized soft tissues are normal. IMPRESSION: There is a disc extrusion at L4-L5 with severe impingement on the left-sided L5 nerve roots. There is up to moderate canal stenosis, AP diameter 6 mm, and moderate bilateral foraminal stenosis. ACT 112: Negative or not required by law. Electronically signed by: Lizandro Stacy M.D. 01/16/2024 1:03 PM Pending Results Patient Have Any Pending Studies at Discharge: No Discharge Instructions Given to Patient (Per Discharging Provider) Ms. Buckley, Ramón were hospitalized after having extreme leg pain. We did an MRI of your spine and this was found to be from the disc herniation and compresson of the nerve root at theL4-L5 area. Your symptoms improved with Phyiscal therapy, pain medication and steroids. During your stay, you also met with Dr. Fairchild, the orthopedic-spine surgeon, who ultimately recommend that we continue with conservative management and you will follow up with his office. You are being discharged with: - steroid taper (prednisone) this is to help inflammation, please start this AM of 01/18 - pain medication (oxycodone), use this as needed, follow instructions on the bottle. Would take Tylenol first line for pain. We have been giving you 650mg every 6 hours while awake which seemed to keep your symptoms under control, would continue this at home, will you continue to heal. - if you are needing alot of the oxycodone, please take a stool softener as the oxycodone can cause constipation - a walker, please continue to use this for your safety - a prescription for outpatient physical therapy, you were provided with a list of local facilities, you can take this to the location of your choice If your pain worsens, please contact Dr. Fairchild's office (information above), to disucss next steps. M Activity: You can do normal everyday activities as your body allows. Take rest breaks if you feel tired. Do not overexert. Stop activity if you have pain, shortness of breath or feel dizzy. Follow-up appointments: Make an appointment with your primary care physician within one week of discharge. A copy of this summary will be sent to them. Every time you see your primary care physician, or any other doctor, bring your medication list, and a list of questions. CONTACT YOUR PRIMARY CARE PROVIDER if you experience any of the following: Shortness of breath or difficulty breathing Fevers or chills Feeling tired with normal activity or experiencing dizziness or fainting Difficulty following your treatment plan, or difficulty taking medications CALL 911 OR GO TO THE EMERGENCY DEPARTMENT if you experience any of the following: Severe abdominal pain or nausea/vomiting Severe chest pain, or chest pain that radiates (moves) to your jaw or arm Sudden, severe shortness of breath or difficulty breathing Thank you for allowing us to participate in your care. Total Time Total Time Spent Total Time Spent (In Minutes): Time spend day of discharge 35 minutes including direct patient care, medication reconciliation, documentation, review of labs and images, and coordination of care. Supervising Physician Co-Signing Physician Notes SHANNAN Supervision Note: I personally saw and examined the patient. I verified all thompson points and agree with SHANNAN Escobar with the following exceptions and/or additions: S-Pt feeling much better, less pain, able to ambulate O- Vitals reviewed Gen: [AAOx3, NAD] HEENT: [anicteric sclerae, EOMI] CV: [RRR no mgr nl S1S2] Pulm: [CTAB no wcr] Neuro: [full strength throughout] A/P-78 yo female here with left sided L5 lumbar radiculopathy from HNP, now much improved with steroid burst. Avoiding surgery for now continue with steroids and PT as outpt Coding Level of Care Code 69727 INP/OBS DISCH >30 MIN Diagnoses Acute sciatica M54.30 Chronic obstructive pulmonary disease J44.9
== END 2024-01-18 14:49 | disposition home or self-care (01) | DRG 552 ==
LOC: ED 06:08 → 3N 06:08 → SUATTDRO 09:42 → 3N 13:25
DX: Z88.2 Allergy status to sulfonamides; J44.9 Chronic obstructive pulmonary disease, unspecified; K21.9 Gastro-esophageal reflux disease without esophagitis; Z83.3 Family history of diabetes mellitus; Z87.891 Personal history of nicotine dependence; M81.0 Age-related osteoporosis without current pathological fracture; M51.16 Intervertebral disc disorders with radiculopathy, lumbar region

== ENCOUNTER 2024-07-29 03:23 | Inpatient (IN) ==
--- NOTE | 2024-07-29 03:44 | Emergency Department Note ---
Impression & Plan Lower back pain, Lumbar radiculopathy, Ambulatory dysfunction ED Provider Note CHIEF COMPLAINT: Back pain HISTORY OF PRESENTING ILLNESS: This 78-year-old female patient presents to the emergency department via EMS with her for evaluation of left lower back pain that radiates into the left leg. The patient states that she twisted wrong in the car 1 week ago and the pain is getting progressively worse. She has been taking [id number] medications without improvement of her symptoms. She has been taking Tylenol, Lidoderm patches, oxycodone, and prednisone. She rates her discomfort as 5/10. She was just seen in the ER yesterday for low back pain. The patient was also seen in the ER on 07/26/2024 and had a normal CBC and CMP as well as a CT scan of her back that showed multilevel central canal and foraminal narrowing similar to December 2023 as well as severe intervertebral disc space narrowing at L4/L5. MRI of the lumbar spine from December 2023 shows: There is a disc extrusion at L4-L5 with severe impingement on the left-sided L5 nerve roots. There is up to moderate canal stenosis, AP diameter 6 mm, and moderate bilateral foraminal stenosis. Denies any loss of control of their bowel or bladder functions. Denies any numbness of their legs, but sometimes has intermittent tingling into the left foot that she has had since December 2023. Denies weakness of their legs. Denies any saddle paresthesias. Denies abdominal pain, nausea, or vomiting. Denies urinary symptoms or changes in their BMs. Denies any chest pain or SOB. Denies any fevers. She is not on any blood thinners. No history of spinal surgery or spinal injections. REVIEW OF SYSTEMS: See HPI for pertinent positives and pertinent negatives. ALLERGIES: Sulfa MEDICATIONS: See below PAST MEDICAL HISTORY: See below PHYSICAL EXAM: VITALS: Vitals are noted on the nurse's note and reviewed by myself. GENERAL: Appears in pain, but non toxic in appearance and in no acute distress. Non-diaphoretic. SKIN: The skin of the back was without obvious rashes, erythema, edema, pilonidal abscess, or bruising. HEAD: Normocephalic atraumatic. EYES: Pupils equal round and reactive to light and accommodation. The Extraocular movements intact. NECK: Supple without nuchal rigidity. No cervical spine tenderness. No paraspinous muscle tenderness. No lymphadenopathy. HEART: Regular rate and rhythm without murmurs gallops or rubs. LUNGS: Clear to auscultation bilaterally without wheezes, rales or rhonchi. ABDOMEN: Positive bowel sounds x 4. Normal tympanic percussion. Soft, nontender, without masses or organomegaly. Astudillo sign negative. MUSCULOSKELETAL: There is tenderness over the lumbar spinous processes. There is also tenderness over the paraspinous muscles bilaterally, but worse on the left. There is no tenderness over the thoracic spine or paraspinous muscles. There are muscle spasms present. The patient is slow to move around with maximum tenderness with flexion of the spine. Mildly positive straight leg raise test on the left. Full ROM of the bilateral lower extremities. Strength 4/5, but equal bilaterally. Some of the decree strength may be secondary to her age. Deep tendon reflexes 2+ in the lower extremities. Dorsalis pedis and posterior tibial pulse 2+ and equal bilaterally. NEURO: Patient was alert and oriented to person place and time. Normal sensation to light and sharp touch of the bilateral lower extremities. No focal neurological deficits. DIFFERENTIAL DIAGNOSIS: Differential diagnosis includes strain/sprain, muscle spasm, disc herniation, fracture, subluxation, metastatic disease, cord compression, discitis, sciatica, cauda equina, conus medullaris syndrome, infection, epidural abscess, epidural hematoma, aortic disease, renal colic, UTI, pyelonephritis, gastrointestinal, as well as other pathologies. ED COURSE AND MEDICAL DECISION MAKING: HISTORY FROM INDEPENDENT HISTORIAN: Additional history obtained for the patient's MEDICATIONS GIVEN: Morphine 4 mg IV, Zofran 4 mg IV, and Decadron 10 mg IV. INTERPRETATION OF LABS: I interpreted the labs with full lab results as below in the lab section of this note. Pertinent lab results discussed in the MDM section below. EXTERNAL RECORDS REVIEWED: I reviewed the patient's previous visits as well as previous CT scan and MRI of the lumbar spine as summarized above. CONSULTATIONS: On-call hospitalist MDM SUMMARY: I examined the patient. This is the third patient in the past 3 days for this patient and her back pain. The patient denies any new or changing symptoms, just that her pain is not controlled well at home. The patient had an MRI in December 2023 that showed a disc extrusion at L4-L5 with severe impingement on the left-sided L5 nerve roots. There is up to moderate canal stenosis, AP diameter 6 mm, and moderate bilateral foraminal stenosis. The patient saw Dr. Fairchild of spinal surgery at that time and no surgical intervention was recommended. The patient was seen in the ER again on 08/[address] scan of her lumbar spine that showed multilevel central canal and foraminal narrowing similar to December 2023 as well as severe intervertebral disc space narrowing at L4/L5. The patient denies any chest pain, shortness of breath, abdominal pain, problems with her urine, or problems with her bowel movements. The patient was not able to move well in the bed or ambulate well due to the pain in her lower back. However, there were no focal neurological deficits on exam. I do not suspect emergent etiology such as conus medullaris syndrome, cauda equina syndrome, epidural abscess, or epidural hematoma. The patient has been taking oral steroids, oxycodone, Tylenol, and lidocaine patches at home without improvement of her symptoms. An IV lock was placed and labs were drawn. The patient was given morphine 4 mg IV, Zofran 4 mg IV, and Decadron 10 mg IV. CBC and BMP were without significant abnormalities. Urinalysis is still pending. I do not feel additional imaging is required in the ER at this time. I had a meaningful discussion about this patient with Dr. Mohr who agrees with my assessment and the treatment plan. I spoke with the on-call hospitalist who agreed to admit the patient for further evaluation, treatment, and pain control. Please refer to their dictation for further details. The patient's care was transferred in stable condition. DIAGNOSIS: Low back pain Ambulatory dysfunction Past Med/Surg History Problem List (Updated 07/29/24 @ 05:37 by Lara Moe PA-C) Ambulatory dysfunction (Acute) Lumbar radiculopathy (Acute) Lower back pain (Acute) Acute left lumbar radiculopathy (Acute) Osteoporosis (Acute) Obesity (Acute) Gastro-esophageal reflux (Acute) Anemia Gross hematuria Left knee pain Anxiety (Acute) Dyslipidemia (Chronic) Medical History Lumbar disc herniation with radiculopathy Chronic obstructive pulmonary disease Uterine fibroid Osteoporosis History of abnormal mammogram Hx of acute dermatitis Hx of basal cell carcinoma Disc degeneration, lumbosacral Surgical History H/O breast biopsy Status post Mohs micrographic surgery for basal cell carcinoma (BCC) S/P dilatation and curettage S/P colonoscopy (~2007) History of cryosurgery OF THE CERVIX S/P breast biopsy Hx of bilateral cataract extraction (~2017) Family History Aunt Breast cancer Father Coronary heart disease Pulmonary embolism Mother Diabetes Sister Dementia Mini stroke History of blood clots Sister History of blood clots Mini stroke Daughter Deep vein thrombosis Brother History of blood clots blood clots in abdomen Other No pertinent family history Denies family history of Ovarian cancer Prostate cancer Myocardial infarction Colorectal cancer Social History Smoking Status: Former smoker Tobacco Type: Cigarettes Age Started Using Tobacco: 17; Age Quit Using Tobacco: 58; packs per day: 0.75; Second Hand Exposure: No; Do You Dip or Chew Tobacco: No; Hx Alcohol Use: No Hx Substance Use: No Preferred Language: Swedish Communication Ability: Effective Visual Impairment: No Limitations Hearing Ability: Normal Groundskeeper Supervisor Required: No Beliefs That Will Affect Care: Islam marital status: Current Living Situation: Spouse current occupational status: retired 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 Feels Safe at Home: Yes Childhood Exposure to Second-Hand Smoke: Yes Diet: regular Dental Care, Regularly: No Physical Activity Frequency: Does not Exercise Seatbelt Use: always Sunscreen Use: Yes (sometimes ) Assistive Devices: None Allergies Allergies Allergy/AdvReac Type Severity Reaction Status Date / Time Sulfa (Sulfonamide Allergy Verified 11/06/23 14:47 Antibiotics) Home Meds Home Medications Medication Instructions Recorded Confirmed denosumab 60 mg/mL subcutaneous 0 mg subcut ONCE 01/15/24 01/15/24 syringe (Prolia) lorazepam 0.5 mg tablet 0.5 mg PO DAILY PRN anxiety 01/15/24 01/15/24 Previous Rx's Medication Instructions Recorded albuterol sulfate 90 mcg/actuation 2 puff inhalation Q4H PRN 10/05/22 aerosol inhaler (Ventolin HFA) Shortness Of Breath #1 inhaler tiotropium bromide 18 mcg capsule 1 cap inhalation DAILY #90 12/05/22 with inhalation device inhalations atorvastatin 40 mg tablet 40 mg PO DAILY #90 tabs 10/05/23 oxycodone 5 mg tablet 5 mg PO Q6H PRN pain #10 tabs 01/18/24 prednisone 10 mg tablet See Taper PO DAILY #18 tabs 01/18/24 prednisone 10 mg tablet 10 mg PO DIRECTED #12 tabs 07/26/24 lidocaine 5 % topical patch 1 patch topical DAILY #15 ea 07/28/24 (Lidoderm) oxycodone 5 mg tablet 5 mg PO Q6H PRN pain #10 tabs 07/28/24 Results & Data (ED) Vital Signs Vital Signs - 24 hr 07/29/24 03:29 07/29/24 03:29 07/29/24 03:38 Temperature 36.6 C 36.6 C Temperature Source Oral Oral Pulse Rate 56 L 59 L Pulse Rate [Apical] 56 L Respiratory Rate 18 18 Respiratory Effort / Characteristics Non-Labored Non-Labored Blood Pressure 137/72 Blood Pressure [Left Arm] 137/72 Blood Pressure Mean 93 Blood Pressure Mean [Left Arm] 93 Pulse Oximetry 91 91 Oxygen Delivery Method Room Air Room Air Sepsis Recent Fever Within 48 Hours No Sepsis New/Unexplained Change in Mental Status No Sepsis Action Taken by Nursing No Action Required 07/29/24 05:07 Temperature Temperature Source Pulse Rate Pulse Rate [Apical] 53 L Respiratory Rate 18 Respiratory Effort / Characteristics Non-Labored Blood Pressure Blood Pressure [Left Arm] 133/68 Blood Pressure Mean Blood Pressure Mean [Left Arm] 89 Pulse Oximetry 92 Oxygen Delivery Method Room Air Sepsis Recent Fever Within 48 Hours Sepsis New/Unexplained Change in Mental Status Sepsis Action Taken by Nursing Laboratory Data 07/29/24 04:02 07/29/24 04:02 Lab Results 07/29/24 Range/Units 04:02 WBC 10.63 (4.8-10.8) K/ul RBC 4.64 (4.20-5.40) M/uL Hgb 13.5 (12.0-16.0) g/dl Hct 40.3 (37.0-47.0) % MCV 86.9 (80.0-100.0) fL MCH 29.1 (25.0-34.0) pg MCHC 33.5 (32.0-36.0) g/dL RDW Std Deviation 43.4 (36.4-46.3) fL RDW Coeff of Rita 13.6 (11.5-14.5) % Plt Count 249 (130-400) K/uL MPV 10.3 (9.4-12.4) fL Immature Gran % (Auto) 0.7 % Neut % (Auto) 60.0 % Lymph % (Auto) 29.8 % [place] % (Auto) 8.8 % Eos % (Auto) 0.3 % Baso % (Auto) 0.4 % Neut # (Auto) 6.38 (1.40-6.50) K/uL Lymph # (Auto) 3.17 (1.20-3.40) K/uL [place] # (Auto) 0.94 H (0.11-0.59) K/uL Eos # (Auto) 0.03 (0.00-0.50) K/uL Baso # (Auto) 0.04 (0.00-0.20) K/uL Immature Gran # (Auto) 0.07 (0.01-0.20) K/uL Sodium 139 (136-145) mmol/L Potassium 4.0 (3.5-5.1) mmol/L Chloride 107 (98-107) mmol/L Carbon Dioxide 27 (21-32) mmol/L Anion Gap 5 (3-11) BUN 22 (6-23) mg/dl Creatinine 0.72 (0.6-1.2) mg/dl Est Cr Clr Drug Dosing 59.9 ml/min eGFR 84.47 BUN/Creatinine Ratio 30.6 H (10-20) Glucose 90 (70-99(Fasting)) mg/dl Calcium 9.0 (8.6-10.3) mg/dl Administered Medications Discontinued Medications Cyclobenzaprine HCl (Cyclobenzaprine Hcl 10 Mg Tab) 10 mg PO NOW STA Stop: 07/29/24 04:38 Last Admin: 07/29/24 04:40 Dose: 10 mg Documented By: ROSA MARIA Dexamethasone Sodium Phosphate (DexamethasonePf 10 Mg/Ml Vial) 10 mg IV NOW ONE Stop: 07/29/24 03:54 Last Admin: 07/29/24 04:22 Dose: 10 mg Documented By: ROSA MARIA Morphine Sulfate (Morphine Sulfate 4 Mg/Ml 1 Ml Carp\Vial) 4 mg IV NOW STA Stop: 07/29/24 03:54 Last Admin: 07/29/24 04:23 Dose: 4 mg Documented By: ROSA MARIA Ondansetron HCl (Ondansetron Inj 2 Mg/Ml 2 Ml Vial) 4 mg IV NOW STA Stop: 07/29/24 03:54 Last Admin: 07/29/24 04:23 Dose: 4 mg Documented By: ROSA MARIA Discharge Plan Visit Data Chief Complaint: Back Injury/Pain Stated Complaint: Back Pain ED Provider: Rose Mohr ED Midlevel Provider: Lara Moe Discharge Problem: Lower back pain, Lumbar radiculopathy, Ambulatory dysfunction Patient Disposition: Admitted As Inpatient Condition: Good Forms Stand Alone Forms: [facility] Prescriptions Prescriptions: No Action tiotropium bromide 18 mcg capsule, w/inhalation device 1 cap inhalation DAILY Qty: 90 3RF atorvastatin 40 mg tablet 40 mg PO DAILY Qty: 90 3RF albuterol sulfate [Ventolin HFA] 90 mcg/actuation HFA aerosol inhaler 2 puff inhalation Q4H PRN (Reason: Shortness Of Breath) Qty: 1 11RF lorazepam 0.5 mg tablet 0.5 mg PO DAILY PRN (Reason: anxiety) Prolia 60 mg/mL syringe 0 mg subcut ONCE Rx Instructions: Unable to verify with patient/pharmacy at this date/time. Reference #: INIT- [id number] Procedure code: [id number] Good for: 08/21/23-08/19/24 Quantity: 2 Visits BUY AND BILL oxycodone 5 mg Tablet 5 mg PO Q6H PRN (Reason: pain) Qty: 10 0RF prednisone 10 mg tablet See Taper PO DAILY Qty: 18 0RF Taper: Taper, Blank 30 mg DAILY for 3 Days 20 mg DAILY for 3 Days 10 mg DAILY for 3 Days prednisone 10 mg tablet 10 mg PO DIRECTED Qty: 12 0RF Rx Instructions: 30 mg (3 tabs) daily x 2 days, then 20 mg (two tabs) daily x 2 days, then 10 mg (one tab) daily x 2 days oxycodone 5 mg tablet 5 mg PO Q6H PRN (Reason: pain) Qty: 10 0RF lidocaine [Lidoderm] 5 % adhesive patch,medicated 1 patch topical DAILY Qty: 15 1RF Rx Instructions: leave on most painful area for up to 12 hrs Referrals Referrals: Marva Liu DO [Primary Care Provider] - Discharge Problem: Lower back pain Qualifiers: Chronicity: unspecified Back pain laterality: left Sciatica presence: u nspecified whether sciatica present Qualified Code(s): M54.50 - Low back pain, unspecified
--- NOTE | 2024-07-29 04:11 | History & Physical Report ---
Date of Service July 29, 2024 Assessment & Plan (1) Lower back pain: (2) Osteoporosis: (3) Gastro-esophageal reflux: (4) Anxiety: (5) Dyslipidemia: Plan Rand is an 78 F chronic lumbar radiculopathy (sciatica), GERD< anemia, HLD, osteoporosis, and anxiety who presents for uncontrolled back pain via EMS. Back Pain, Uncontrolled - Patient's 6th presentation for lumbar back pain 1 prior admission 01/15/24-01/18/24 Seen 07/26, 07/28, and 07/29 in ED - Presentation concerning for muscular spasm Likely psoas +/- piriformis given relief in hip flexion position - No success w/ home PO steroids, PO oxycodone, and Lidocaine patch - No radicular symptoms or sx c/w cauda equina - CT Lumbar Spine 07/26: multilevel central canal narrowing unchanged from 01/16/24 (admission), levoscoliosis (mild), severe intervertebral disc space narrowing L4-L5 - Anti-Inflammatory: Steroids - s/p Prednisone 10 mg PO daily 07/26 - 07/29, s/p IV Dexamethasone 10 mg in ED - Muscular Spasm: Flexeril 10 mg PO BID - Pain Regimen * First Line: Tylenol 1000 mg PO Q8h * Second Line: Morphine 4 mg Q4h IV, Pain 1-10 * Third Line: Morphine 2 mg Q2h IV, Breakthrough Pain - Consult PT/OT - Orthopedics evaluation on last admission advised against surgical intervention - Consider pain management as outpatient Chronic Conditions: - HLD: statin held - Anxiety: continue Lorazepam PRN Code: Full DVT: SCD IVF: None Diet: Reg Dispo: Med pending PT/OT History of Present Illness Chief Complaint: Back Pain Primary Care Provider: Marva Sow DO Rand is an 78 F chronic lumbar radiculopathy (sciatica), GERD< anemia, HLD, osteoporosis, and anxiety who presents for uncontrolled back pain via EMS. Patient with multiple recent presentations for acute lumbar back pain, including an admission in December. Tonight she presented via EMS for acute left lower back pain w/o radiation, weakness, or numbness. She notes that the pain is severe (10/10) with movement and mild (3/10) at rest. She expresses that she feels like she needs to remain bent forward (flexed at the hips). Patient denies any loss of bowel/bladder control. Current episode began 07/20 when patient notes that she was in a twisting motion and started having pain. No injuries to the area. Patient denies any dysuria, frequency, or urgency. She has not experienced any fevers, chills, nausea, emesis, or abdominal pain. She denies lightheadedness, dizziness, or headaches. Patient has not had any spinal surgeries or injections. She is known to have osteoporosis for which she takes Prolia. Allergies Allergy/AdvReac Type Severity Reaction Status Date / Time Sulfa (Sulfonamide Allergy Rash Verified 07/29/24 06:32 Antibiotics) Home Medications Medication Instructions Recorded Confirmed Type albuterol sulfate 90 mcg/actuation 2 puff inhalation Q4H PRN 10/05/22 07/29/24 Rx aerosol inhaler (Ventolin HFA) Shortness Of Breath #1 inhaler tiotropium bromide 18 mcg capsule 1 cap inhalation DAILY #90 12/05/22 07/29/24 Rx with inhalation device inhalations atorvastatin 40 mg tablet 40 mg PO DAILY #90 tabs 10/05/23 07/29/24 Rx denosumab 60 mg/mL subcutaneous 0 mg subcut ONCE 01/15/24 07/29/24 History syringe (Prolia) lorazepam 0.5 mg tablet 0.5 mg PO DAILY PRN anxiety 01/15/24 07/29/24 History oxycodone 5 mg tablet 5 mg PO Q6H PRN pain #10 tabs 01/18/24 07/29/24 Rx prednisone 10 mg tablet 10 mg PO DIRECTED #12 tabs 07/26/24 07/29/24 Rx lidocaine 5 % topical patch 1 patch topical DAILY #15 ea 07/28/24 07/29/24 Rx (Lidoderm) Past Med/Surg History Problem List (Updated 07/29/24 @ 05:37 by Lara Moe PA-C) Ambulatory dysfunction (Acute) Lumbar radiculopathy (Acute) Lower back pain (Acute) Acute left lumbar radiculopathy (Acute) Osteoporosis (Acute) Obesity (Acute) Gastro-esophageal reflux (Acute) Anemia Gross hematuria Left knee pain Anxiety (Acute) Dyslipidemia (Chronic) Medical History Lumbar disc herniation with radiculopathy Chronic obstructive pulmonary disease Uterine fibroid Osteoporosis History of abnormal mammogram Hx of acute dermatitis Hx of basal cell carcinoma Disc degeneration, lumbosacral Surgical History H/O breast biopsy Status post Mohs micrographic surgery for basal cell carcinoma (BCC) S/P dilatation and curettage S/P colonoscopy (~2007) History of cryosurgery OF THE CERVIX S/P breast biopsy Hx of bilateral cataract extraction (~2017) Family History Aunt Breast cancer Father Coronary heart disease Pulmonary embolism Mother Diabetes Sister Dementia Mini stroke History of blood clots Sister History of blood clots Mini stroke Daughter Deep vein thrombosis Brother History of blood clots blood clots in abdomen Other No pertinent family history Denies family history of Ovarian cancer Prostate cancer Myocardial infarction Colorectal cancer Social History Smoking Status: Never smoker Tobacco Type: Cigarettes Age Started Using Tobacco: 17; Age Quit Using Tobacco: 58; packs per day: 0.75; Second Hand Exposure: No; Do You Dip or Chew Tobacco: No; Hx Alcohol Use: No Hx Substance Use: No Preferred Language: Maori Communication Ability: Effective Visual Impairment: No Limitations Hearing Ability: Normal Blanket Folder Required: No Beliefs That Will Affect Care: None marital status: Current Living Situation: Spouse current occupational status: retired 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 Other Information That Helps Us Care for You: No Feels Safe at Home: Yes Safety Concerns: Feels Safe At This Time Childhood Exposure to Second-Hand Smoke: Yes Diet: regular Dental Care, Regularly: No Physical Activity Frequency: Does not Exercise Seatbelt Use: always Sunscreen Use: Yes (sometimes ) Assistive Devices: None Physical Exam Physical Exam: Gen: NAD, alert, interactive, tearful HEENT: Supple, no LAD, no thyromegaly Resp:Non-labored, no wheezing/rhonchi/rales, CTAB CV:RRR, normal S1/S2, no M/R/G Abd: Soft, non-distended, no TTP, normoactive bowels, no masses Back: Mild TTP across L4-L5, TTP of left lumbar paraspinal muscles extending into left gluteal muscles, straight leg raise negative Extr: 2+ dp bilaterally, no edema, strength 5/5 bilaterally w/ sensation intact, no saddle anesthesia Skin: No rashes lesions or erythema Results & Data Results & Data Vital Signs (Past 12 Hours) Vital Signs Temp Pulse Pulse Resp BP BP Pulse Ox 07/29/24 03:38 36.6 C 56 L 18 137/72 91 07/29/24 03:29 59 L 07/29/24 03:29 36.6 C 56 L 18 137/72 91 O2 Del Method 07/29/24 03:38 Room Air 07/29/24 03:29 07/29/24 03:29 Room Air Supervising Physician Co-Signing Physician Notes patient seen and examined chart reviewed ,case discussed with Dr. Harper and I agree with the assessment and plan as above Resident Activity Tracking Resident Involvement: Resident Care Provided Care Provided: Adult Hospital Medicine (1) Lower back pain Back pain laterality: left Chronicity: acute Sciatica presence: without sciatica Qualified Code(s): M54.50 - Low back pain, unspecified
[2024-07-29] MEDS: dexAMETHasone**PF** 10 MG/ML VIAL IV ONE (04:22)
[2024-07-29] MEDS: ONDANSETRON INJ 2 MG/ML 2 ML VIAL IV STA (04:23)
[2024-07-29] MEDS: MoRPHine SULFATE 4 MG/ML 1 ML CARP\\VIAL IV STA (04:23)
[2024-07-29] MEDS: CYCLOBENZAPRINE HCL 10 MG TAB PO STA (04:40)
[2024-07-29 04:54] LABS: Basophils # (auto) 0.04 K/uL (0.00-0.20); Basophils % (auto) 0.4 %; Eosinophils # (auto) 0.03 K/uL (0.00-0.50); Eosinophils % (auto) 0.3 %; Hematocrit (blood only) 40.3 % (37.0-47.0); Hemoglobin 13.5 g/dl (12.0-16.0); Immature Granulocytes # (auto) 0.07 K/uL (0.01-0.20); Immature Granulocytes % (auto) 0.7 %; Lymphocytes # (auto) 3.17 K/uL (1.20-3.40); Lymphocytes % (auto) 29.8 %; Mean Corpuscular Hemoglobin 29.1 pg (25.0-34.0); Mean Corpuscular Hgb Conc 33.5 g/dL (32.0-36.0); Mean Corpuscular Volume 86.9 fL (80.0-100.0); Mean Platelet Volume 10.3 fL (9.4-12.4); Monocytes # (auto) 0.94 K/uL (0.11-0.59); Monocytes % (auto) 8.8 %; Neutrophils # (auto) 6.38 K/uL (1.40-6.50); Platelet Count 249 K/uL (130-400); RDW Coefficient of Variation 13.6 % (11.5-14.5); RDW Standard Deviation 43.4 fL (36.4-46.3); Red Blood Count 4.64 M/uL (4.20-5.40); White Blood Count 10.63 K/ul (4.8-10.8)
[2024-07-29 05:00] LABS: BUN Creatinine Ratio 30.6 (10-20); Creatinine Clr Calc Pharmacy 59.9 ml/min
[2024-07-29] MEDS ORDERED: MoRPHine SULFATE 4 MG/ML 1 ML CARP\\VIAL IV PRN (06:57)
[2024-07-29] MEDS ORDERED: MoRPHine SULFATE 2 MG/ML CARP IV PRN ×2 (06:57→09:01)
[2024-07-29] MEDS ORDERED: ONDANSETRON INJ 2 MG/ML 2 ML VIAL IV PRN (06:57)
[2024-07-29] MEDS ORDERED: POLYETHYLENE (MIRALAX) 17 GM PACK PO PRN (06:57)
[2024-07-29] MEDS ORDERED: ACETAMINOPHEN 500 MG TAB PO PRN (06:57)
[2024-07-29] MEDS ORDERED: ALBUTEROL HFA 8 GM INHALER INH PRN (06:57)
[2024-07-29] MEDS ORDERED: MELATONIN 3 MG TAB PO PRN (06:57)
[2024-07-29] MEDS: UMECLIDINIUM BROMIDE 62.5MCG/BLISTER 7 PUFFS/INHALER INH SCH (08:55)
[2024-07-29] MEDS: ACETAMINOPHEN 500 MG TAB PO SCH (08:55)
[2024-07-29] MEDS ORDERED: oxyCODONE HCL IR 5 MG TAB (IMMEDIATE RELEASE) PO PRN (09:00)
--- NOTE | 2024-07-29 16:22 | Communication Note ---
Date of Service: July 29, 2024 admitted this morning by my colleague Dr. Rodriguez severe intermittent left buttock pain for 1 week I saw Rand this afternoon. She describes intermittent severe pain at a very discrete area on her left buttock that is triggered by movement. She did not have any falls but it started after a sort of twisting motion and when she got into the car last week. This pain is not similar to her previous lumbar radicular pain that she had in December. It does not radiate down her leg or to her groin. She has never had similar pain. She is pain-free at rest but with any movement this has been triggered. She has done somewhat better throughout the day today and is not having pain I was actually able to help her up to the restroom and she had only a slight twinge of pain in this area. Therefore it seems that she has improved with the addition of Flexeril and a 10 mg dose of dexamethasone this morning my exam she has some tenderness of her left buttock the area of the sacroiliac joint. no mass or swelling in this area. No tenderness to palpation of her lumbar spine area or paraspinous muscles. She tolerates full range of hip including full flexion and external rotation without any pain. There is no tenderness over the left trochanteric bursa. Straight leg raise is negative she has quite good flexion. pressure on bilateral ASIS did not cause any pelvic pain I think this does not fit the pattern of lumbar radicular pain or sciatica. It seems most likely muscle spasm perhaps piriformis muscle, or sacroiliac joint pain. continue current treatment including scheduled acetaminophen and scheduled Flexeril, consider another dose of Decadron tomorrow, otherwise follow her previously prescribed prednisone taper if not improving consider pelvic imaging with CT or MRI
[2024-07-29] MEDS: LIDOCAINE 5% 1 PATCH TD SCH (20:10)
[2024-07-29] MEDS: CYCLOBENZAPRINE HCL 10 MG TAB PO SCH (20:10)
[2024-07-29 20:42] LABS: Appearance Urine Clear (Clear); Bilirubin Urine Negative (Negative); Blood Urine Negative (Negative); Color Urine Yellow; Glucose Urine UA Negative (Negative); Ketones Urine Negative (Negative); Leukocyte Esterase Urine Negative (Negative); Nitrite Urine Negative (Negative); Protein Urine Negative (Negative); Specific Gravity Urine 1.013 (1.000-1.030); Urobilinogen Urine Negative (Negative); pH Urine 5.5 (4.5-7.5)
--- NOTE | 2024-07-30 08:24 | Billing Data ---
Date of Service July 29, 2024 Coding Level of Care Code 58169 INT INP/OBS CARE
[2024-07-30] MEDS: dexAMETHasone 6 MG in SYRINGE 0 ML IV SCH (09:55)
--- NOTE | 2024-07-30 14:05 | Hospitalist Progress Note ---
Date of Service July 30, 2024 Assessment & Plan (1) Lower back pain: Plan: left sided pain is directly over the expected location of the left SI joint suspect left SI joint dysfunction vs facet arthrosis at L4-L5 or L5-S1 given her lumbar spine CT findings no radicular pain of LLE at this time fortunately doubt that pain is from the left hip itself she is improving with muscle relaxers, steroids, tylenol, pain meds, lidoderm patches, etc. add k-pad add voltaren gel 4gm QID to affected area of note - this is the pt's 3rd visit to our hospital over the last week for this issue (Seen 07/26, 07/28, and 07/29 in ED with last visit leading to admission) if she fails to improve or worsens will obtain updated MRI lumbar spine (last was 01/16/24) appreciate PT/OT evals (2) Osteoporosis: (3) Gastro-esophageal reflux: Plan: no issues at this time, but consider GI prophy with pepcid or PPI once discharged to home (sending with steroid course) (4) Anxiety: Plan: ativan prn (5) Dyslipidemia: Plan: resume statin at d/c Plan updated at bedside if she stays beyond tomorrow will add chemical DVT proph Admission and Anticipated Discharge Date Admission Date: July 29, 2024 Subjective patient reports feeling better today less pain in the left low back denies any pain in the left leg a couple of days ago she had mild left groin pain but that has resolved denies LLE weakness denies paresthesias of LLE denies any RLE symptoms denies pain in mid-thoracic region Review of Systems Review of Systems: gen - no fevers or chills cv - no cp pulm - no dyspnea GI - constipation present but eating fine, no nausea/vomiting Physical Exam Physical Exam: gen - comfortable when stationary, some pain in L low back with moving around in bed neck - no JVD mouth - MMM heart - RRR, s1 s2, no murmur lungs - CTA b/l abd - soft NT ND BS+ ext - no edema, pulses 2+ b/l neuro - strength L hip flexion 5/5; strength left knee extension 5/5; left ankle dorsiflexion/plantarflexion 5/5; RLE muscles 5/5 strength musculo - exquisite tenderness over L SI joint to palpation; no pain along the t-spine or l-spine spinous processes; negative straight leg raise; no tenderness over trochanteric bursa on left; sensation intact to light touch over L2/L3/L4/L 5 dermatomes b/l; flexion, external rotation of L hip does not elicit any pain in the L hip or low back Results & Data Results & Data Vital Signs (Past 12 Hours) Vital Signs Temp Pulse Resp BP Pulse Ox O2 Del Method 07/30/24 07:58 36.6 C 60 16 146/73 H 96 Room Air Diagnostic Findings 07/26/[address]: HISTORY: 78 years-old Female Low back into l leg acute low back pain with radiation into the left lower extremity COMPARISON: MRI lumbar spine 01/16/2024 TECHNIQUE: Multiple axial CT images of the lumbar spine were obtained without IV contrast. A dose lowering technique was used consistent with the principals of LATOYA. FINDINGS: Transitional lumbosacral anatomy. For the purposes of this study, the L5-S1 disc space will be described on axial image 253 series 3. Atherosclerosis of the a tano. No paravertebral edema or acute intra-abdominal abnormality. Minimal levoscoliosis. There is severe narrowing of the L4-L5 disc space with moderate circumferential disc osteophyte complex. The imaged sacrum and iliac bones appear intact. Central canal and neural foraminal structures are better seen on prior MRI. L1-L2: No central canal or foraminal narrowing. L2-L3: Small posterior annular disc bulge. Central canal and right neural foramen are patent. There is unchanged mild left foraminal narrowing. L3-L4: Moderate intervertebral disc space narrowing. Small posterior disc osteophyte complex. Ligament flavum thickening with moderate facet arthrosis. Mild central canal and left foraminal narrowing. [id number] right foraminal stenosis. L4-L5: Circumferential disc osteophyte complex. Ligamentum flavum thickening with moderate facet arthrosis. Moderate to severe central canal stenosis with AP dimension of the thecal sac measuring 6 mm. Previously noted disc extrusion versus sequestered disc fragment is not identified. Mild to moderate left with moderate right foraminal narrowing. L5-S1: Posterior annular disc bulge eccentric to the left lateral recess and left neural foramen with ligamentum flavum thickening and severe facet arthrosis. Severe central canal stenosis with AP dimension of the thecal sac measuring 5 mm. Severe left lateral recess narrowing. Moderate to severe left with mild right foraminal narrowing is similar to prior. IMPRESSION: 1. No acute fracture or subluxation. 2. Multilevel central canal and foraminal narrowing is similar to the 01/16/2024 study. 3. Mild levoscoliosis. 4. Severe intervertebral disc space narrowing at L4-L5. ACT 112: Negative or not required by law. The above report was generated using voice recognition software. It may contain grammatical, syntax or spelling errors. Electronically signed by: Gabe Moore M.D. 07/26/2024 3:15 PM Dictated: 07/26/24 1508 Transcribed: 07/26/24 1508 PG Care Time/CCT Total # of Minutes Spent Total Time Spent with Patient: Total time spent is greater than 50% in coordination of care (as documented) at patient's floor/unit and/or counseling patient: Coding Level of Care Code 87936 SUB INP/OBS CARE 2/35MIN Diagnoses Lower back pain M54.50 Back pain laterality: left Chronicity: unspecified Sciatica presence: unspecified whether sciatica present Osteoporosis M81.0 Gastro-esophageal reflux K21.9 Anxiety F41.9 Dyslipidemia E78.5 (1) Lower back pain Back pain laterality: left Chronicity: unspecified Sciatica presence: unspecified whether sciatica present Qualified Code(s): M54.50 - Low back pain, unspecified
[2024-07-30] MEDS: POLYETHYLENE (MIRALAX) 17 GM PACK PO SCH (14:20)
[2024-07-30] MEDS: bisacodyL 5 MG TABEC PO ONE (14:20)
[2024-07-30] MEDS: DICLOFENAC SOD 1% GEL 100 GM TUBE EXT SCH (17:27)
[2024-07-31 07:42] VITALS: RESP 16
[2024-07-31] MEDS: MAGNESIUM CITRATE 296 ML/BTL PO ONE (12:01)
[2024-07-31] MEDS: bisacodyL 10 MG SUPP PR STA (13:53)
[2024-07-31] MEDS: LORazepam 0.5 MG TAB PO PRN (19:23)
--- NOTE | 2024-07-31 20:26 | Hospitalist Progress Note ---
Date of Service July 31, 2024 Assessment & Plan (1) Lower back pain: Plan: left sided pain is directly over the expected location of the left SI joint suspect left SI joint dysfunction vs facet arthrosis at L4-L5 or L5-S1 given her lumbar spine CT findings still no radicular pain of LLE at this time fortunately doubt that pain is from the left hip itself she is improving with muscle relaxers, steroids, tylenol, pain meds, lidoderm patches, voltaren gel, heat of note - this is the pt's 3rd visit to our hospital over the last week for this issue (Seen 07/26, 07/28, and 07/29 in ED with last visit leading to admission) will update MRI lumbar spine (last was 01/16/24) and will send to Dr Ferris, [facility], after discharge in the event she needs injections, etc appreciate PT/OT evals - cleared for home will provide gentle stretching exercises for her back for home (2) Degenerative arthritis of lumbar spine: Plan: lumbar spine CT on 07/26 with results as follows - FINDINGS: Transitional lumbosacral anatomy. For the purposes of this study, the L5-S1 disc space will be described on axial image 253 series 3. Atherosclerosis of the aorta. No paravertebral edema or acute intra-abdominal abnormality. Minimal levoscoliosis. There is severe narrowing of the L4-L5 disc space with moderate circumferential disc osteophyte complex. The imaged sacrum and iliac bones appear intact. Central canal and neural foraminal structures are better seen on prior MRI. L1-L2: No central canal or foraminal narrowing. L2-L3: Small posterior annular disc bulge. Central canal and right neural foramen are patent. There is unchanged mild left foraminal narrowing. L3-L4: Moderate intervertebral disc space narrowing. Small posterior disc osteophyte complex. Ligament flavum thickening with moderate facet arthrosis. Mild central canal and left foraminal narrowing. Uima-eo-kqpeozyu right foraminal stenosis. L4-L5: Circumferential disc osteophyte complex. Ligamentum flavum thickening with moderate facet arthrosis. Moderate to severe central canal stenosis with AP dimension of the thecal sac measuring 6 mm. Previously noted disc extrusion versus sequestered disc fragment is not identified. Mild to moderate left with moderate right foraminal narrowing. L5-S1: Posterior annular disc bulge eccentric to the left lateral recess and left neural foramen with ligamentum flavum thickening and severe facet arthrosis. Severe central canal stenosis with AP dimension of the thecal sac measuring 5 mm. Severe left lateral recess narrowing. Moderate to severe left with mild right foraminal narrowing is similar to prior. last MRI lumbar spine was 01/16/24 will update her lumbar spine MRI before discharge home will set her up with Dr Ferris, pain management at [facility], for ongoing care and in the event she needs intervention such as epidural pain shots etc (3) Osteoporosis: (4) Gastro-esophageal reflux: Plan: no issues at this time, but consider GI prophy with pepcid or PPI once discharged to home (sending with steroid course) (5) Anxiety: Plan: ativan prn (6) Dyslipidemia: Plan: resume statin at d/c Plan updated at bedside once again severe opiate-induced constipation - gave mag citrate x 1 this am followed by dulcolax suppos this afternoon with copious stool by report DVT Proph - add lovenox 40mg daily Admission and Anticipated Discharge Date Admission Date: July 29, 2024 Subjective patient's main complaint is that of constipation feels "full"and bloated despite such no abd pain or N/V eating "too well!" she passed a tiny hard ball of stool only this am still no radicular pain of either leg pain is overall improved in comparison to admission pain remains the worst in the lowest portion of lumbar spine near the left SI joint pain has not changed in location or moved or radiated able to stand unassisted and walk using heating pad Review of Systems Review of Systems: cv - no chest pain pulm - no dyspnea GI - no abd pain Physical Exam Physical Exam: gen - sitting in chair, NAD neck - no JVD mouth - MMM heart - RRR, s1 s2, no murmur lungs - CTA b/l abd - soft NT ND BS+ ext - no edema, pulses 2+ b/l neuro - strength L hip flexion 5/5; strength left knee extension 5/5; left ankle dorsiflexion/plantarflexion 5/5; RLE muscles 5/5 strength musculo - chlorine cell tender over L SI joint to palpation; no pain along the t-spine or l-spine spinous processes; no tenderness over trochanteric bursa on left Results & Data Results & Data Vital Signs (Past 12 Hours) Vital Signs Temp Pulse Resp BP Pulse Ox O2 Del Method 07/31/24 16:41 36.6 C 65 16 128/65 94 Room Air PG Care Time/CCT Total # of Minutes Spent Total Time Spent with Patient: Total time spent is greater than 50% in coordination of care (as documented) at patient's floor/unit and/or counseling patient: Coding Level of Care Code 61077 SUB INP/OBS CARE 2/35MIN Diagnoses Lower back pain M54.50 Back pain laterality: left Chronicity: unspecified Sciatica presence: unspecified whether sciatica present Degenerative arthritis of lumbar spine M47.816 Osteoporosis M81.0 Gastro-esophageal reflux K21.9 Anxiety F41.9 Dyslipidemia E78.5 (1) Lower back pain Back pain laterality: left Chronicity: unspecified Sciatica presence: unspecified whether sciatica present Qualified Code(s): M54.50 - Low back pain, unspecified
[2024-07-31 20:59] VITALS: TEMP 97.7
--- NOTE | 2024-07-31 23:04 | Magnetic Resonance Report ---
Exam(s): MRI L SPINE Without Contrast EXAM: MR Lumbar Spine Without Intravenous Contrast CLINICAL HISTORY: Reason for exam: L SI joint pain, known l-spine DJD. TECHNIQUE: Magnetic resonance images of the lumbar spine without intravenous contrast in multiple planes. COMPARISON: Comparison made to prior MRI of the lumbar spine from January 16, 2024. FINDINGS: This study is limited as the sacroiliac joints were not visualized in the study. Vertebrae: There are 5 lumbar type vertebral bodies with a mild levoscoliosis and shallow lumbar lordosis. The S1 vertebral body is transitional. There is normal vertebral body height and alignment. The bone marrow signal is heterogeneous with reactive endplate changes with moderate bone marrow edema at L4-5. No acute fracture. Spinal cord: The conus is normal size, shape and signal characteristics, terminating at L1-L2. Soft tissues: Advanced atrophy of the iliopsoas, paraspinous intraspinous musculature. The aorta and IVC flow voids are intact. The visualized kidneys are unremarkable. There is increased fluid signal within the interspinous bursitis L4-5 and L5-S1. DISCS/SPINAL CANAL/NEURAL FORAMINA: L1-L2: The intervertebral disc is normal. There is minimal to mild facet joint arthropathy with mild synovitis. L2-L3: Moderate disc degeneration with annular disc bulge causing a mild subarticular recess stenosis with disc extending to the neural foramina without impingement or significant stenosis. There is mild facet arthropathy with mild synovitis. L3-L4: Moderate disc degeneration with annular disc bulge asymmetric to the left causing a mild subarticular recess stenosis with disc extending to the neural foramina without impingement or significant stenosis. There is mild facet arthropathy with mild synovitis. L4-L5: Advanced disc degeneration with annular disc bulge causing a mild subarticular recess stenosis with superimposed congenital short pedicles causing a moderately severe spinal canal stenosis with thecal sac measuring 0.59 cm. There is disc and osteophyte extending to the neural foramina causing a moderate right stenosis with mild impingement of the right L4 nerve root ganglion. There is mild facet arthropathy with mild synovitis. L5-S1: There is mild disc degeneration with annular disc bulge asymmetric to the left causing a mild right and severe left subarticular recess stenosis with impingement of the transiting S1 nerve root. There is disc and osteophyte extending to the neural foramina causing a mild left stenosis without evidence of neural impingement. There is mild facet joint arthropathy with mild synovitis. IMPRESSION: 1. Advanced disc degeneration at L4-5, moderate disc degeneration at L2- 3, L3-4 and mild disc degeneration at L5-S1 with annular disc bulging causing mild subarticular recess stenosis at L2-3, L3-4, L4-5 and a mild right and severe left subarticular recess stenosis at L5-S1 with impingement of the transiting left S1 nerve root. There is moderate bone marrow edema at L4-5, which maybe causing a central discogenic type lower back pain. 2. There is a moderately severe spinal canal stenosis at L4-5. 3. There is a moderate right L4-5 and mild left L5-S1 neural foraminal stenosis with mild impingement of the right L4 nerve or ganglia. 4. There is minimal to mild facet arthropathy with mild synovitis. 5. Interspinous bursitis at L4-5 and L5-S1. 6. No evidence of fracture, infection, tumor or arachnoiditis. Electronically signed by: Mary Kate Washburn MD 07/31/24 23:04 PM
[2024-08-01 07:12] VITALS: BP 135/68; O2SAT 92
[2024-08-01] MEDS: ENOXAPARIN INJ 40 MG/0.4 ML SYR SQ SCH (07:39)
[2024-08-01 07:52] LABS: BUN Creatinine Ratio 31.3 (10-20); Calcium 8.7 mg/dl (8.6-10.3); Potassium 4.6 mmol/L (3.5-5.1)
[2024-08-01 08:10] LABS: Estimated Average Glucose 120 mg/dl; Hemoglobin A1C 5.8 % (4.5-5.6)
[2024-08-01 11:36] VITALS: PULSE 74
--- NOTE | 2024-08-01 11:54 | Discharge Summary ---
Discharge Summary Date of Service date of admission - July 29, 2024 date of discharge - August 01, 2024 Principal Dx & Hospital Course #1 = Principal Diagnosis (1) Lower back pain: patient presented with severe left sided low back pain but fortunately denied any radicular pain of either leg pain was directly over the expected location of the left SI joint suspect left SI joint dysfunction vs facet arthrosis at L4-L5 or L5-S1 given her CT lumbar spine and MRI lumbar spine findings vs pain due to DDD at L4-L5 vs combination of factors causing her presenting pain see MRI lumbar spine results below doubt that her pain was intrinsic left hip pain she made steady improvement with muscle relaxers, steroids, tylenol, pain meds, lidoderm patches, voltaren gel, heat she was sent home with a steroid taper, flexeril to be used prn, voltaren OTC prn, oxycodone prn, etc. her images were placed on a CD for her a referral has been made to Dr Luis Ferris, [facility] ([place] office), in the event her pain does not resolve over the next few weeks provided her a handout of gentle stretching exercises for her back she was seen by PT/OT and cleared for home with her (2) Degenerative arthritis of lumbar spine: MRI of the lumbar spine showed the following - 1. Advanced disc degeneration at L4-5, moderate disc degeneration at L2-3, L3-4 and mild disc degeneration at L5-S1 with annular disc bulging causing mild subarticular recess stenosis at L2-3, L3-4, L4-5 and a mild right and severe left subarticular recess stenosis at L5-S1 with impingement of the transiting left S1 nerve root. There is moderate bone marrow edema at L4-5, which maybe causing a central discogenic type lower back pain. 2. There is a moderately severe spinal canal stenosis at L4-5. 3. There is a moderate right L4-5 and mild left L5-S1 neural foraminal stenosis with mild impingement of the right L4 nerve or ganglia. 4. There is minimal to mild facet arthropathy with mild synovitis. 5. Interspinous bursitis at L4-5 and L5-S1. 6. No evidence of fracture, infection, tumor or arachnoiditis. See #1 above regarding hospital course (3) Osteoporosis: 25OH vit D level was 27.5 advised that she double her vitamin D supplement to 2000 IU twice daily for a few months and have her level repeated down the line (4) Gastro-esophageal reflux: recommended GI prophylaxis with PPI once daily especially while on her steroid course once steroids are complete - if she were to take an NSAID regularly - would stay on PPI to protect her stomach (5) Anxiety: ativan prn (6) Dyslipidemia: cont statin (7) Constipation: 2nd to opiate therapy improved s/p multiple bowel agents while here discussed a bowel regimen at home for maintenance (8) Prediabetes: hemoglobin a1c 5.8% patient aware of diagnosis and will continue dietary control Admission HPI Per Admitting Provider Rand is an 78 F chronic lumbar radiculopathy (sciatica), GERD< anemia, HLD, osteoporosis, and anxiety who presents for uncontrolled back pain via EMS. Patient with multiple recent presentations for acute lumbar back pain, including an admission in December. Tonight she presented via EMS for acute left lower back pain w/o radiation, weakness, or numbness. She notes that the pain is severe (10/10) with movement and mild (3/10) at rest. She expresses that she feels like she needs to remain bent forward (flexed at the hips). Patient denies any loss of bowel/bladder control. Current episode began 07/20 when patient notes that she was in a twisting motion and started having pain. No injuries to the area. Patient denies any dysuria, frequency, or urgency. She has not experienced any fevers, chills, nausea, emesis, or abdominal pain. She denies lightheadedness, dizziness, or headaches. Patient has not had any spinal surgeries or injections. She is known to have osteoporosis for which she takes Prolia. Discharge Exam gen - looks good today, NAD neck - no JVD mouth - MMM heart - RRR, s1 s2, no murmur lungs - CTA b/l abd - soft NT ND BS+ ext - no edema, pulses 2+ b/l neuro - strength L hip flexion 5/5; strength left knee extension 5/5; left ankle dorsiflexion/plantarflexion 5/5; RLE muscles 5/5 strength musculo - improved tenderness over the Left SI joint to palpation; no pain along the t-spine or l-spine spinous processes; no tenderness over trochanteric bursa on left Discharge Plan Discharge Items Patient Disposition: Home - Self-Care Reason For Visit: BACK PAIN Discharge Diagnosis: 1. severe back pain due to lumbar spine degenerative arthritis +/- SI (sacro- iliac) joint dysfunction on left - improving 2. low-normal vitamin B12 level (275) 3. vitamin D insufficiency (level = 27; normal >30) 4. mild pre-diabetes (hemoglobin a1c 5.8%) 5. severe constipation - resolved Activity: As commented below Activity Comment: gradually increase activities over the next 1-2 weeks Lifting: No more than 10 pounds Exercise/Sports: Wait until after follow-up appointment Exercise Comment: gentle stretching is OK Non-emergency contact: Primary Care Provider and Specialist Call non-emergency contact if: you have any medication questions, your symptoms worsen, your pain is not controlled, your pain is worsening and you have a fever Follow-up/Referrals: Yonathan Ferris MD [Surgeon] - ([facility]; referral has been made to Dr Ferris's office; appointment date/time to be determined ) Marva Liu DO [Primary Care Provider] - 08/05/24 1:25 pm Diet: Carb Consistent or DM2 Addtl Attending Provider Instructions: Mrs Buckley, You were treated for severe low back pain. This improved with combination of IV steroids, pain medicine, muscle relaxers, topical treatments, heat, tylenol, etc. Recent CT of the lumbar spine and a repeat MRI of the same region shows moderate to severe degeneration of the spine. The degeneration has caused herniated discs/disc disease, small joints of the spine to become inflamed, etc. All of the above medicines will help the various issues that are present within the spine. I cannot rule out that some of your pain was coming from the left SI (sacro- iliac) joint. This is where your spine meets your pelvis. Again the steroids, pain medicines, etc. will help SI joint pain as well. During the stay you had severe constipation due to recent use of pain killer (narcotic) medication. This is resolved with laxatives. Recommendations - 1. Take dexamethasone steroid x 8 days starting tomorrow, 08/02/24. Take with food. The steroid will be in a tapering fashion; follow directions on bottle. 2. For pain you can take any or all of the following - * ssgr-tbw-sypzhfm tylenol 1000mg up to three times per day; maximum 3000mg in a 24-hour period * asab-zen-jmjaxdp lidoderm ("Salonpas") pain patches; apply to site of pain for 12 hours, remove for 12 hours * joqq-oyh-emqzvef Voltaren (diclofenac) gel -- 4 grams apply to site of pain every 6 hours as needed/as desired * oxycodone pain killer medicine - 5mg every 6 hours as needed * NO DRIVING if taking oxycodone pain medicine * NO ALCOHOL use if taking oxycodone pain medicine * oxycodone can make you sleepy or impair your senses * oxycodone will also cause constipation 3. Heat or ice to the back as needed/as desired. 4. For muscle spasm/muscle pain - cyclobenzaprine 10mg every 8 hours as needed. This medicine MAY MAKE YOU TIRED/SLEEPY. NO DRIVING if taking this medicine. 5. In a few days you can start to do some gentle stretching exercises (see handout previously given). 6. Avoid heavy lifting (nothing more than 10 pounds) for at least 2 weeks. 7. To avoid stomach upset from the steroids please take omeprazole 20mg once daily. I would take this medicine for at least 2 weeks. If your family doctor elects to put you on prescription anti-inflammatory medicine down the line you may want to stay on the omeprazole at that time as well. Please discuss with your family doctor. 8. For low-normal vitamin B12 take xcod-etb-bzbcshe vitamin B12 1000mcg (1mg) daily for about 6 months then stop. 9. Please increase your vitamin supplement from 2000 IU daily to 2000 IU twice a day. Do this for about 2 months then go back to once daily dosing. Your family doctor can repeat your B12 and vitamin D levels in a few months. 10. In the future when you see Dr Ferris please bring the CD with your back MRI to that appointment. 11. For prevention of constipation you can take 1 or both of the following - * miralax 1 serving daily and/or * senakot 2 tablets daily Follow-up - see separate section Return to [facility] if - * you have fever over 100 degrees * you have worsening or severe back pain despite taking all of the above medicines * you have pains traveling down the legs, especially if severe * you have weakness of either leg or have difficulty walking * any other concerns It was our pleasure to care for you! Pending Studies at Discharge: No Stand-Alone Forms: My [facility], Pain - Opioid Pain Management, Smoking Cessation Medications and DC Order Prescriptions: New diclofenac sodium [Voltaren Arthritis Pain] 1 % Gel 4 g EXT QID Qty: 1 0RF Rx Instructions: purchase yfjd-los-wrwfnea; apply to site of pain in low back dexamethasone 2 mg tablet 2 mg PO DIRECTED Qty: 15 0RF Rx Instructions: start 08/02/24, take w/ food. 3 tabs PO QD x 2 days; 2 tabs PO QD x 3 days; 1 tab PO QD x 3 days. cyclobenzaprine 10 mg Tablet 10 mg PO TID PRN (Reason: muscle spasm/muscle pain) Qty: 30 0RF omeprazole 20 mg capsule,delayed release(DR/EC) 20 mg PO DAILY Qty: 30 1RF cyanocobalamin (vitamin B-12) 1,000 mcg tablet 1,000 mcg PO DAILY Qty: 90 1RF Rx Instructions: purchase zmvd-mei-yyhrbon cholecalciferol (vitamin D3) [Vitamin D3] 50 mcg (2,000 unit) tablet 2,000 unit PO BID Qty: 60 1RF Rx Instructions: purchase svkx-eaj-rlncvxz Continued tiotropium bromide 18 mcg capsule, w/inhalation device 1 cap inhalation DAILY Qty: 90 3RF atorvastatin 40 mg tablet 40 mg PO DAILY Qty: 90 3RF albuterol sulfate [Ventolin HFA] 90 mcg/actuation HFA aerosol inhaler 2 puff inhalation Q4H PRN (Reason: Shortness Of Breath) Qty: 1 11RF lorazepam 0.5 mg tablet 0.5 mg PO DAILY PRN (Reason: anxiety) Prolia 60 mg/mL syringe 0 mg subcut ONCE Rx Instructions: Unable to verify with patient/pharmacy at this date/time. Reference #: INIT- [id number] Procedure code: [id number] Good for: 08/21/23-08/19/24 Quantity: 2 Visits BUY AND BILL lidocaine [Lidoderm] 5 % adhesive patch,medicated 1 patch topical DAILY Qty: 15 1RF Rx Instructions: leave on most painful area for up to 12 hrs oxycodone 5 mg Tablet 5 mg PO Q6H PRN (Reason: pain) Qty: 20 0RF Discontinued prednisone 10 mg tablet 10 mg PO DIRECTED Qty: 12 0RF Rx Instructions: 30 mg (3 tabs) daily x 2 days, then 20 mg (two tabs) daily x 2 days, then 10 mg (one tab) daily x 2 days Discharge Orders: Discharge Order (Routine); Ordered 08/01/24 Ordered By: Kip Richardson/Other Patient Handouts: Preventing Deep Vein Thrombosis Admission Data Admit Date/Time: 07/29/24 04:38 Attending Provider: Kip German Admit Provider: Aileen Rodriguez Primary Care Provider: Marva Liu Other Providers: Aileen Rodriguez Other Interventions: Discharge Summary Assessment (RN) Last Done: 08/01/24 11:36 Hospital Stay Data Consultations PT OT Diagnostic Imagining Performed Lumbar Spine MRI 07/31/24 18:22 Exam(s): MRI L SPINE Without Contrast EXAM: MR Lumbar Spine Without Intravenous Contrast CLINICAL HISTORY: Reason for exam: L SI joint pain, known l-spine DJD. TECHNIQUE: Magnetic resonance images of the lumbar spine without intravenous contrast in multiple planes. COMPARISON: Comparison made to prior MRI of the lumbar spine from January 16, 2024. FINDINGS: This study is limited as the sacroiliac joints were not visualized in the study. Vertebrae: There are 5 lumbar type vertebral bodies with a mild levoscoliosis and shallow lumbar lordosis. The S1 vertebral body is transitional. There is normal vertebral body height and alignment. The bone marrow signal is heterogeneous with reactive endplate changes with moderate bone marrow edema at L4-5. No acute fracture. Spinal cord: The conus is normal size, shape and signal characteristics, terminating at L1-L2. Soft tissues: Advanced atrophy of the iliopsoas, paraspinous intraspinous musculature. The aorta and IVC flow voids are intact. The visualized kidneys are unremarkable. There is increased fluid signal within the interspinous bursitis L4-5 and L5-S1. DISCS/SPINAL CANAL/NEURAL FORAMINA: L1-L2: The intervertebral disc is normal. There is minimal to mild facet joint arthropathy with mild synovitis. L2-L3: Moderate disc degeneration with annular disc bulge causing a mild subarticular recess stenosis with disc extending to the neural foramina without impingement or significant stenosis. There is mild facet arthropathy with mild synovitis. L3-L4: Moderate disc degeneration with annular disc bulge asymmetric to the left causing a mild subarticular recess stenosis with disc extending to the neural foramina without impingement or significant stenosis. There is mild facet arthropathy with mild synovitis. L4-L5: Advanced disc degeneration with annular disc bulge causing a mild subarticular recess stenosis with superimposed congenital short pedicles causing a moderately severe spinal canal stenosis with thecal sac measuring 0.59 cm. There is disc and osteophyte extending to the neural foramina causing a moderate right stenosis with mild impingement of the right L4 nerve root ganglion. There is mild facet arthropathy with mild synovitis. L5-S1: There is mild disc degeneration with annular disc bulge asymmetric to the left causing a mild right and severe left subarticular recess stenosis with impingement of the transiting S1 nerve root. There is disc and osteophyte extending to the neural foramina causing a mild left stenosis without evidence of neural impingement. There is mild facet joint arthropathy with mild synovitis. IMPRESSION: 1. Advanced disc degeneration at L4-5, moderate disc degeneration at L2- 3, L3-4 and mild disc degeneration at L5-S1 with annular disc bulging causing mild subarticular recess stenosis at L2-3, L3-4, L4-5 and a mild right and severe left subarticular recess stenosis at L5-S1 with impingement of the transiting left S1 nerve root. There is moderate bone marrow edema at L4-5, which maybe causing a central discogenic type lower back pain. 2. There is a moderately severe spinal canal stenosis at L4-5. 3. There is a moderate right L4-5 and mild left L5-S1 neural foraminal stenosis with mild impingement of the right L4 nerve or ganglia. 4. There is minimal to mild facet arthropathy with mild synovitis. 5. Interspinous bursitis at L4-5 and L5-S1. 6. No evidence of fracture, infection, tumor or arachnoiditis. Electronically signed by: Mary Kate Washburn MD 07/31/24 23:04 PM Pending Results Patient Have Any Pending Studies at Discharge: No Discharge Instructions Given to Patient (Per Discharging Provider) Ramón Lopez were treated for severe low back pain. This improved with combination of IV steroids, pain medicine, muscle relaxers, topical treatments, heat, tylenol, etc. Recent CT of the lumbar spine and a repeat MRI of the same region shows moderate to severe degeneration of the spine. The degeneration has caused herniated discs/disc disease, small joints of the spine to become inflamed, etc. All of the above medicines will help the various issues that are present within the spine. I cannot rule out that some of your pain was coming from the left SI (sacro- iliac) joint. This is where your spine meets your pelvis. Again the steroids, pain medicines, etc. will help SI joint pain as well. During the stay you had severe constipation due to recent use of pain killer (na rcotic) medication. This is resolved with laxatives. Recommendations - 1. Take dexamethasone steroid x 8 days starting tomorrow, 08/02/24. Take with food. The steroid will be in a tapering fashion; follow directions on bottle. 2. For pain you can take any or all of the following - * dzwr-fdw-mitswnl tylenol 1000mg up to three times per day; maximum 3000mg in a 24-hour period * nfaa-hta-hnhawkt lidoderm ("Salonpas") pain patches; apply to site of pain for 12 hours, remove for 12 hours * uwbe-neq-wtohkih Voltaren (diclofenac) gel -- 4 grams apply to site of pain every 6 hours as needed/as desired * oxycodone pain killer medicine - 5mg every 6 hours as needed * NO DRIVING if taking oxycodone pain medicine * NO ALCOHOL use if taking oxycodone pain medicine * oxycodone can make you sleepy or impair your senses * oxycodone will also cause constipation 3. Heat or ice to the back as needed/as desired. 4. For muscle spasm/muscle pain - cyclobenzaprine 10mg every 8 hours as needed. This medicine MAY MAKE YOU TIRED/SLEEPY. NO DRIVING if taking this medicine. 5. In a few days you can start to do some gentle stretching exercises (see handout previously given). 6. Avoid heavy lifting (nothing more than 10 pounds) for at least 2 weeks. 7. To avoid stomach upset from the steroids please take omeprazole 20mg once daily. I would take this medicine for at least 2 weeks. If your family doctor elects to put you on prescription anti-inflammatory medicine down the line you may want to stay on the omeprazole at that time as well. Please discuss with your family doctor. 8. For low-normal vitamin B12 take bavm-wne-ictebrm vitamin B12 1000mcg (1mg) daily for about 6 months then stop. 9. Please increase your vitamin supplement from 2000 IU daily to 2000 IU twice a day. Do this for about 2 months then go back to once daily dosing. Your family doctor can repeat your B12 and vitamin D levels in a few months. 10. In the future when you see Dr Ferris please bring the CD with your back MRI to that appointment. 11. For prevention of constipation you can take 1 or both of the following - * miralax 1 serving daily and/or * senakot 2 tablets daily Follow-up - see separate section Return to [facility] if - * you have fever over 100 degrees * you have worsening or severe back pain despite taking all of the above medicines * you have pains traveling down the legs, especially if severe * you have weakness of either leg or have difficulty walking * any other concerns It was our pleasure to care for you! Total Time Total Time Spent Total Time Spent (In Minutes): 45 Coding Level of Care Code 14363 INP/OBS DISCH >30 MIN Diagnoses Lower back pain M54.50 Back pain laterality: left Chronicity: unspecified Sciatica presence: unspecified whether sciatica present Degenerative arthritis of lumbar spine M47.816 Osteoporosis M81.0 Gastro-esophageal reflux K21.9 Anxiety F41.9 Dyslipidemia E78.5 Constipation K59.00 Prediabetes R73.03
== END 2024-08-01 13:05 | disposition home or self-care (01) | DRG 552 ==
LOC: SUATTDRO → ED 03:23 → EDINP 04:38 → SUATTDRO 04:38 → 3W 07:00